=== PATIENT | male | born 1955 | race Caucasian/White ===

== ENCOUNTER 2022-07-24 00:03 | Outpatient (CLI) | payer MEDICARE, BC, SELFPAY | END 2022-07-24 00:04 | disposition home or self-care (01) | LOC: AMB 07-29 10:56 | PROVIDERS: Visit Provider Family Medicine | DX: R10.9 Unspecified abdominal pain (principal) | CPT/HCPCS: A0425; A0427 ==

== ENCOUNTER 2024-10-05 06:54 | Outpatient (CLI) | payer MEDICARE, BC, SELFPAY ==
--- NOTE | 2024-10-05 08:19 | P.ANES_ITS ---
Anesthesia Charges Start Date/Time Anesthesia Start Date: 10/05/24 Anesthesia Start Time: 08:01 Stop Date/Time Anesthesia Stop Date: 10/05/24 Anesthesia Stop Time: 08:18 Coding CPT Codes CPT Codes: ANES UPR GI NDSC PX NOS - 00229 ([id number]) P3 - PATIENT W/SEVERE SYS DISEASE, QX - SURGICAL RN SVC W/ MD MED DIRECTION, QK - GEAR LAPPER 2-4 CNCRNT ANES PROC
--- NOTE | 2024-10-05 08:19 | W.ANESCHARGE ---
Anesthesia Charges Start Date/Time Anesthesia Start Date: 10/05/24 Anesthesia Start Time: 08:01 Stop Date/Time Anesthesia Stop Date: 10/05/24 Anesthesia Stop Time: 08:18 Coding CPT Codes CPT Codes: ANES UPR GI NDSC PX NOS - 44081 ([id number]) P3 - PATIENT W/SEVERE SYS DISEASE, QX - WIRELESS SALES CONSULTANT SVC W/ MD MED DIRECTION, QK - FLIGHT COMMUNICATIONS OFFICER 2-4 CNCRNT ANES PROC
--- NOTE | 2024-10-05 09:05 | P.ANES_ITS ---
Anesthesia Charges Start Date/Time Anesthesia Start Date: 10/05/24 Anesthesia Start Time: 08:01 Stop Date/Time Anesthesia Stop Date: 10/05/24 Anesthesia Stop Time: 08:18 Coding CPT Codes CPT Codes: ANES UPR GI NDSC PX NOS - 44654 ([id number]) QK - SHIPPING RECEIVING CLERK 2-4 CNCRNT ANES PROC, QX - COFFEE SAMPLER SVC W/ MD MED DIRECTION, P3 - PATIENT W/SEVERE SYS DISEASE
--- NOTE | 2024-10-05 09:05 | W.ANESCHARGE ---
Anesthesia Charges Start Date/Time Anesthesia Start Date: 10/05/24 Anesthesia Start Time: 08:01 Stop Date/Time Anesthesia Stop Date: 10/05/24 Anesthesia Stop Time: 08:18 Coding CPT Codes CPT Codes: ANES UPR GI NDSC PX NOS - 13216 ([id number]) QK - DIGITAL PHOTOGRAPHIC PRINTER 2-4 CNCRNT ANES PROC, QX - VERIFIER OPERATOR SVC W/ MD MED DIRECTION, P3 - PATIENT W/SEVERE SYS DISEASE
== END 2024-10-05 06:55 | disposition home or self-care (01) ==
LOC: OP CLINIC 06:55
PROVIDERS: Visit Provider Internal Medicine
DX: Z13.810 Encounter for screening for upper gastrointestinal disorder (principal); K22.70 Barrett's esophagus without dysplasia; K21.9 Gastro-esophageal reflux disease without esophagitis; K31.7 Polyp of stomach and duodenum
CPT/HCPCS: 00731; 43239; 88305; J2704; J3010

== ENCOUNTER 2025-01-26 17:24 | Emergency (ER) | payer MEDICARE, BC, SELFPAY ==
--- OUTSIDE RECORDS SUMMARY | 2024-12-23 12:33 | XMS_ITS | Encounter Summary ---
Author Organization [facility] Address [address] [place] [address] Care Team Providers Care Grocery Associate Name Role Phone Elsewhere, Pcp Primary Care Provider Unavailabl e Reason for Visit * Outpatient (Routine) - Closed Specialty Diagnoses / Procedures Referred By Contac t Referred To Contact Diagnoses Aftercare Total Knee Arthroplasty Procedures DX Knee Bilateral 4+ Views DX Knee Left 4+ Views Roland Loredo P.A.-C., P.A., M.S. [address] [place] [phone] Phone: tel: fax: [facility] Region Referral ID Status Reason Start Date Expiration Date Visits Re quested Visits Authorized [id number] Closed 12/23/2024 03/25/2026 1 1 Encounter Details Date Type Department Care Team (Latest Contact Info) Description 12/23/2024 1:33 PM CDT - 12/23/2024 2:30 PM CDT Hospital Encounter Department of Radiology, [facility] [place], in [place], [place] [address] [place] [phone] Roland Loredo P.A.-C., P.A., M.S. [address] [place] [phone] Aftercare Total Knee Arthroplasty Discharge Disposition: Home or Self Care Social History Tobacco Use Types Packs/Day Years Used Date Smoking Tobacco: Never Smokeless Tobacco: Never Alcohol Use Standard Drinks/Week Comments Not Currently 0 (1 standard drink = 0.6 oz pur e alcohol) quit 1993 [facility] Utilities Answer Date Recorded In the past 12 months has th e [employer], gas, oil, or water company threatened to shut off services in your home? No 03/12/2023 Humiliation, Afraid, Rape, and Kick questionnair e Answer Date Recorded Within the last year, have y ou been afraid of your partner or ex-partner? No 03/12/2023 Within the last year, have y ou been humiliated or emotionally abused in other ways by your partner or ex-partner? No Within the last year, have y ou been kicked, hit, slapped, or otherwise physically hurt by your partner or ex-partner? No 03/12/2023 Within the last year, have y ou been raped or forced to have any kind of sexual activity by your partner or ex-partner? No 03/12/2023 Hunger Vital Sign Answer Date Recorded Within the past 12 months, y ou worried that your food would run out before you got the money to buy more. Never true 03/12/19 24 Within the past 12 months, t he food you bought just didn't last and you didn't have money to get more. Never true 03/12/2023 PRAPARE - Transportation Answer Date Re corded In the past 12 months, has l ack of transportation kept you from medical appointments or from getting medications? No 03/03 In the past 12 months, has l ack of transportation kept you from meetings, work, or from getting things needed for daily living? No 03/12/2023 Housing Stability Answer Date Recorded What is your living situation today? 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 160 tablet 2 11/01/2022 albuterol sulfate 90 mcg/actuation aerosol powdr breath activated Inhale 2 puffs every 4 (four) hours as needed for shortness of breath. 06/06/2015 ALPRAZolam XR (XANAX XR) 3 mg 24 hr tablet Take 6 mg by mouth daily as needed. budesonide-formoter oL (SYMBICORT) 160-4.5 mcg/actuation inhaler Inhale 2 puffs 2 (two) times a day as needed. Takes when has a cold. Rinse mouth with water after use to reduce aftertaste and incidence of candidiasis. Do not swallow. bumetanide (BUMEX) 1 mg tablet Take 1 mg by mouth daily as needed (Uses for fluid in his knee). 07/31/2023 carboxymethylcellul ose (REFRESH PLUS) 0.5 % ophthalmic solution Administer 1 drop into both eyes 3 (three) times a day as needed for dry eyes. 1 each 2 11/01/2022 celecoxib (CeleBREX) 200 mg capsule Take 1 capsule (200 mg total) by mouth 2 (two) times a day. 180 capsule 3 11/01/2022 Constulose 10 gram/15 mL solution Take 10 g by mouth daily. 02/22/2020 cyclobenzaprine (FLEXERIL) 10 mg tablet Take 10 mg by mouth at bedtime as needed. 11/21/2022 diazePAM (for_VALIUM) 5 mg tablet Take 10 mg by mouth at bedtime. famotidine (Pepcid) 20 mg tablet Take 20 mg by mouth 2 (two) times a day. FLUTICASONE PROPIONATE NASAL Administer 2 sprays into nostril(s) daily as needed. gabapentin (NEURONTIN) 300 mg capsule Take 300 mg by mouth 2 (two) times a day. 09/30/2022 gemfibrozil (for_LOPID) 600 mg tablet Take 1 tablet by mouth at bedtime. 02/21/2012 hydrOXYzine (for_VISTARIL) 25 mg capsule Take 25 mg by mouth at bedtime. 03/29/2016 MAGNESIUM ORAL Take 300 mg by mouth every morning before breakfast. neomycin-polymyxin- dexamethasone (Maxitrol) 3.5mg/mL-10,000 unit/mL-0.1 % ophthalmic suspension 04/22/2024 neomycin-polymyxin- HC (Cortisporin) 3.5-10,000-1 mg/mL-unit/mL-% otic solution 03/04/2024 ondansetron ODT (Zofran-ODT) 4 mg disintegrating tablet Dissolve 1 tablet (4 mg total) in the mouth every 8 (eight) hours as needed for nausea or vomiting. 20 tablet 10/26/2024 oxyBUTYnin (Ditropan) 5 mg tablet Take 1 tablet (5 mg total) by mouth 3 (three) times a day as needed (bladder spasms). Take as needed for bladder spasms or stent irritation 20 tablet 1 10/28/2024 oxyCODONE (Roxicodone) 10 mg IR tablet Take 1 tablet by mouth daily. 07/10/2024 pantoprazole (for_PROTONIX) 40 mg EC tablet Take 1 tablet by mouth daily. 07/24/2016 polyethylene glycol (MIRALAX) 17 gram powder packet Take 17 g by mouth daily as needed. Dissolve each 17 g dose in 240 mLs (8 ounces) of beverage. propranoloL (INDERAL) 40 mg tablet Take 40 mg by mouth 2 (two) times a day. 09/20/2022 ramipriL (ALTACE) 2.5 mg capsule Take 2.5 mg by mouth daily. 08/25/2020 rosuvastatin (CRESTOR) 20 mg tablet Take 20 mg by mouth at bedtime. 07/13/2022 semaglutide (Ozempic) 1 mg/dose (4 mg/3 mL) injection Inject 1 mg under the skin every 7 (seven) days. senna 8.6 mg tablet TAKE 2 TABLETS BY MOUTH DAILY 100 tablet 11 10/11/2024 sucralfate (CARAFATE) 100 mg/mL suspension Take 1 g by mouth as needed (for his esophagus). 05/10/2023 temazepam (RESTORIL) 30 mg capsule Take 30 mg by mouth at bedtime. 1 01/06/2019 traMADoL (Ultram) 50 mg tablet 11/09/2024 traMADoL-acetaminop hen (ULTRACET) 37.5-325 mg per tablet Take by mouth daily as needed. Takes when working 01/29/2023 documented as of this encounter Plan of Treatment Scheduled Procedures Name Priority Associated Diagnoses Date/Ti me URETEROSCOPY STONE EXTRACTION Stone Ureteral documented as of this encounter Procedures Procedure Name Priority Date/Time Associated Diagnosis Comments DX KNEE BILATERAL 4+ VIEWS RAD - Routine (most inpatients and all outpatients) 12/23/2024 1:54 PM CDT Aftercare Total Knee Arthroplasty documented in this encounter Results * DX Knee Bilateral 4+ Views (12/23/2024 1:54 PM CDT) Anatomical Region Laterality Modality Lower Extremity, Knee, Muscu loskeletal RST LOS, Musculoskeletal ARZ LOS, Muskuloskeletal FLA LOS Bilateral Digit al Radiography Impressions 12/23/2024 2:43 PM CDT 1. Small right knee joint effusion with moderate degenerative osteoarthritis primarily involving the patellofemoral joint. 2. Stable left total knee arthroplasty. Narrative 12/23/2024 2:43 PM CDT EXAM: DX KNEE BILATERAL 4+ VIEWS COMPARISON: 09/11/2023. FINDINGS: There is a small knee joint effusion on the right. No fracture or destructive. There is moderate degenerative osteoarthritis primarily involving the patellofemoral joint. On the left soft tissues are unremarkable. Total knee arthroplasty is stable and unchanged without loosening or dislocation. There is no significant interval change compared with 06/12/2023. Procedure Note Stan Mcdaniel Jr., M.D. - 12/23/2024 EXAM: DX KNEE BILATERAL 4+ VIEWS COMPARISON: 09/11/2023. FINDINGS: There is a small knee joint effusion on the right. No fractureor destructive. There is moderate degenerative osteoarthritis primarilyinvolving the patellofemoral joint. On the left soft tissues areunremarkable. Total knee arthroplasty is stable and unchanged withoutloosening or dislocation. There is no significant interval change comparedwith 06/12/2023. IMPRESSION: 1. Small right knee joint effusion with moderate degenerativeosteoarthritis primarily involving the patellofemoral joint. 2. Stable left total knee arthroplasty. Roland Loredo P.A.-C., P.A., M.S. IMG DIAGNOSTIC IMAGING PROCEDURES Final Result documented in this encounter Visit Diagnoses Diagnosis Aftercare Total Knee Arthroplasty documented in this encounter Care Teams Grocery Associate Relationship Specialty Start Date End Date Elsewhere, Pcp PCP - General Internal Medicine 07/15/22 documented as of this encounter
--- OUTSIDE RECORDS SUMMARY | 2024-12-23 13:30 | XMS_ITS | Encounter Summary ---
Author Organization [facility] Address [address] [place] [id number] Care Team Providers Care Visual Artist Name Role Phone Elsewhere, Pcp Primary Care Provider Unavailabl e Reason for Visit * Reason Comments Pain Pain * Appointment Request (Routine) - Closed Specialty Diagnoses / Procedures Referred By Gris kelly Referred To Contact Orthopedic Surgery Referral ID Status Reason Start Date Expiration Date Visits Re quested Visits Authorized [id number] Closed 12/23/2024 03/25/2026 1 1 Encounter Details Date Type Department Care Team (Late st Contact Info) Description 12/23/2024 2:30 PM CDT Office Visit Department of Orthopedic Surgery in [address] [phone] Roland Loredo P.A.-Shana., P.A., M.S. [address] [place] [phone] Aftercare Total Knee Arthroplasty (Primary Dx); Primary Osteoarthritis Knee Right Discharge Disposition: Home or Self Care Social History Tobacco Use Types Packs/Day Years Used Date Smoking Tobacco: Never Smokeless Tobacco: Never Alcohol Use Standard Drinks/Week Comments Not Currently 0 (1 standard drink = 0.6 oz pur e alcohol) quit 1993 [facility] Utilities Answer Date Recorded In the past 12 months has e electric, gas, oil, or water company threatened to [...] your living situation today? I have a [facility] place to live 03/12/2023 Sex and Gender Information Value Date Recorded Sex Assigned at Male 07/18/2017 9:35 AM CDT Legal Sex Male 4:00 PM [employer]UMIN[employer] Gender Identity Male 07/18/2017 9:35 AM CDT Sexual Orientation Straight 07/18/2017 9: 35 AM CDT documented as of this encounter Last Filed Vital Signs Vital Sign Reading Time Taken Comments Blood Pressure - - Pulse 70 12/23/2024 2:03 PM CDT Temperature 36.7 C (98.1 F) 12/23/2024 2:03 PM CDT Respiratory Rate - - Oxygen Saturation 95% 12/23/2024 2:03 PM CDT Inhaled Oxygen Concentration - - Weight - - Height - - Body Mass Index - - documented in this encounter Progress Notes * Roland Loredo P.A.-C., P.A., M.S. - 12/23/2024 2:30 PM CDT [facility] Orthopedic Surgery Name: Adal Alvarez : 1955 Sex: male Date: 12/24/2024 CHIEF COMPLAINT: Left knee pain HISTORY OR PRESENT ILLNESS: Adal is a 69-year-old male who presents to the clinic with left knee pain. He also stated early on in his visit that he has concerns regarding his right knee and his righthip. Specifically for his left knee, he states he has been having discomfort over the last year bella half. Of note he does have a history of a left total knee arthroplasty done by Dr. Farrar on 10/30/2022. 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 He does do a lot of kneeling on his left knee and finds this to be aggravating. He also has found his left knee buckling at times. He feels he has a bump on the anterior aspect of his knee. In regards to his right knee he has discomfort while doing the same things, specifically with kneeling. He did briefly mentioned concerns of having a bump on his right hip as well today. Adal states he did have to have a kidney stone removed surgically a few months ago. He is still dealing with issues with this. He states today he does have 2 collect urine sample which he believes they also we will be checking for any possible bacteria. PAST MEDICAL/SURGICAL/FAMILY/SOCIAL HISTORY: The medical history was reviewed today from the electronic medical record. Please see the electronic medical record for complete details of the PAST MEDICAL HISTORY, FAMILY HISTORY, and SOCIAL HISTORY. Past Surgical History: Procedure Laterality Date ARTHROPLASTY REPLACEMENT TOTAL KNEE Left 10/30/2022 Procedure: ARTHROPLASTY REPLACEMENT TOTAL KNEE; Surgeon: Hank Farrar D.O.; Location: [facility] COLON SURGERY CYSTOSCOPY INSERTION STENT URETER Right 10/28/2024 Procedure: CYSTOSCOPY INSERTION STENT URETER; Surgeon: Mary Estes M.D.; Location: [facility] OR CYSTOSCOPY WITH TRANSURETHRAL PROSTATECTOMY N/A 03/12/2023 Procedure: CYSTOSCOPY WITH TRANSURETHRAL PROSTATECTOMY; Surgeon: Mary Estes M.D.; Location: [facility] OR CYSTOURETHROSCOPY WITH PLACEMENT URETERAL STENT Right 07/15/2022 Procedure: CYSTOURETHROSCOPY WITH PLACEMENT URETERAL STENT; Surgeon: Jason Chawla M.D.; Location: [facility] OR ESOPHAGOGASTRODUODENOSCOPY N/A 05/31/2021 Procedure: ESOPHAGOGASTRODUODENOSCOPY; Surgeon: Isma Osorio M.D.; Location: [facility] OR KNEE ARTHROSCOPY Left OTHER esophageal hernia repair in 9th grade RETROGRADE PYELOGRAM Right 07/15/2022 Procedure: RETROGRADE PYELOGRAM; Surgeon: Jason Chawla M.D.; Location: [facility] OR RETROGRADE PYELOGRAM Right 10/28/2024 Procedure: RETROGRADE PYELOGRAM; Surgeon: Mary Estes M.D.; Location: [facility] OR SACRAL NERVE STIMULATION - STAGE 1 N/A 12/10/2023 Procedure: SACRAL NERVE STIMULATION - STAGE 1; Surgeon: Mary Estes M.D.; Location: [facility] OR SACRAL NERVE STIMULATION - STAGE 2 N/A 12/31/2023 Procedure: SACRAL NERVE STIMULATION - STAGE 2; Surgeon: Mary Estes M.D.; Location: [facility] OR URETEROSCOPY WITH LASER LITHOTRIPSY Right 10/28/2024 Procedure: URETEROSCOPY WITH LASER LITHOTRIPSY; Surgeon: Mary Estes M.D.; Location: [facility] OR MEDICATIONS: Current Outpatient Medications on File Prior to Visit Medication Sig Dispense Refill acetaminophen (TYLENOL) 500 mg tablet Take 2 tablets (1,000 mg total) by mouth every 6 (six) hours.160 tablet 2 albuterol sulfate 90 mcg/actuation aerosol powdr breath activated Inhale 2 puffs every 4 (four) hours as needed for shortness of breath. ALPRAZolam XR (XANAX XR) 3 mg 24 hr tablet Take 6 mg by mouth daily as needed. budesonide-formoteroL (SYMBICORT) 160-4.5 mcg/actuation inhaler Inhale 2 puffs 2 (two) times a day as needed. Takes when has a cold. Rinse mouth with water after use to reduce aftertaste and incidence of candidiasis. Do not swallow. bumetanide (BUMEX) 1 mg tablet Take 1 mg by mouth daily as needed (Uses for fluid in his knee). carboxymethylcellulose (REFRESH PLUS) 0.5 % ophthalmic solution Administer 1 drop into both eyes 3 (three) times a day as needed for dry eyes. 1 each 2 celecoxib (CeleBREX) 200 mg capsule Take 1 capsule (200 mg total) by mouth 2 (two) times a day. 180capsule 3 Constulose 10 gram/15 mL solution Take 10 g by mouth daily. cyclobenzaprine (FLEXERIL) 10 mg tablet Take 10 mg by mouth at bedtime as needed. diazePAM (for_VALIUM) 5 mg tablet Take 10 mg by mouth at bedtime. famotidine (Pepcid) 20 mg tablet Take 20 mg by mouth 2 (two) times a day. FLUTICASONE PROPIONATE NASAL Administer 2 sprays into nostril(s) daily as needed. gabapentin (NEURONTIN) 300 mg capsule Take 300 mg by mouth 2 (two) times a day. gemfibrozil (for_LOPID) 600 mg tablet Take 1 tablet by mouth at bedtime. hydrOXYzine (for_VISTARIL) 25 mg capsule Take 25 mg by mouth at bedtime. MAGNESIUM ORAL Take 300 mg by mouth every morning before breakfast. pmtpoljx-llzaygilh-lawyzixvlwuht (Maxitrol) 3.5mg/mL-10,000 unit/mL-0.1 % ophthalmic suspension hdknfbly-cpnwoioun-YU (Cortisporin) 3.5-10,000-1 mg/mL-unit/mL-% otic solution ondansetron ODT (Zofran-ODT) 4 mg disintegrating tablet Dissolve 1 tablet (4 mg total) in the mouthevery 8 (eight) hours as needed for nausea or vomiting. 20 tablet 0 oxyBUTYnin (Ditropan) 5 mg tablet Take 1 tablet (5 mg total) by mouth 3 (three) times a day as needed (bladder spasms). Take as needed for bladder spasms or stent irritation 20 tablet 1 pantoprazole (for_PROTONIX) 40 mg EC tablet Take 1 tablet by mouth daily. polyethylene glycol (MIRALAX) 17 gram powder packet Take 17 g by mouth daily as needed. Dissolve each 17 g dose in 240 mLs (8 ounces) of beverage. propranoloL (INDERAL) 40 mg tablet Take 40 mg by mouth 2 (two) times a day. ramipriL (ALTACE) 2.5 mg capsule Take 2.5 mg by mouth daily. rosuvastatin (CRESTOR) 20 mg tablet Take 20 mg by mouth at bedtime. semaglutide (Ozempic) 1 mg/dose (4 mg/3 mL) injection Inject 1 mg under the skin every 7 (seven) days. senna 8.6 mg tablet TAKE 2 TABLETS BY MOUTH DAILY 100 tablet 11 sucralfate (CARAFATE) 100 mg/mL suspension Take 1 g by mouth as needed (for his esophagus). temazepam (RESTORIL) 30 mg capsule Take 30 mg by mouth at bedtime. 1 traMADoL (Ultram) 50 mg tablet traMADoL-acetaminophen (ULTRACET) 37.5-325 mg per tablet Take by mouth daily as needed. Takes when working oxyCODONE (Roxicodone) 10 mg IR tablet Take 1 tablet by mouth daily. (Patient not taking: Reported on 12/23/2024) No current facility-administered medications on file prior to visit. ALLERGIES: Allergies Allergen Reactions Fish Derived Anaphylaxis Atorvastatin Myalgia Levaquin [Levofloxacin] Other (see comments) Intolerance to Levaquin. Facial flushing but could have been from being in the sun since he did notrealize he should not be in the sun. Morphine Nausea And Vomiting Penicillins Hives (Reselect Reaction) Shellfish Containing Products Anaphylaxis Per patient report PHYSICAL EXAM: General: Alert and orientated to person, place, and time. No signs of distress or discomfort. Speech is coherent and appropriate to conversation. Breathing is non-labored. Vitals: 12/23/24 1403 Pulse: 70 Temp: 36.7 ??C SpO2: 95% Gait: Nonantalgic Skin: Intact. Sensation: Intact sensation along peroneal, deep peroneal, and tibial nerve distribution Right Hip Exam: I was unable to palpate any type of mass or lump that he has been referencing. It potentially may be slightly more swollen compared to the left side. He is nontender to palpation about the hip. He is able to go from a seated to standing position easily today with no pain. No pain along the ITB band. Right Knee Exam: No joint effusion with balloting. Range of motion 0??-115??. No tenderness to palpation along the anterior, medial, and lateral joint lines. Likely suspected prepatellar bursitis upon palpation. Left Knee Exam: No joint effusion with balloting. No erythema or warmth noted. Range of motion 0??-115??. No tenderness to palpation along the anterior, medial, and lateral joint lines. Significant callus to the anterior aspect of his knee, likely from the kneeling he has been doing. No pain or laxity with valgus and varus stress at 0?? and 30??. Negative Anterior drawer. IMAGING: @DX Knee Bilateral 4+ Views Result Date: 12/23/2024 Impression: 1. Small right knee joint effusion with moderate degenerative osteoarthritis primarily involving the patellofemoral joint. 2. Stable left total knee arthroplasty. ASSESSMENT: Status post left total knee arthroplasty 2022 Right knee primary osteoarthritis Right hip lump PLAN: I independently reviewed patient's x-rays he had completed today. In regards to his left total knee arthroplasty, the hardware is intact with no concerning findings. The right knee does show significant patellofemoral arthritic changes. We discussed the anatomy and pathology of these findings today. After obtaining patient's history and conducting his physical exam I have no concerns today regarding any infection to his left total knee. I do feel most of his symptoms are being aggravated by the amount of time he spends kneeling on his knee. He did have significant callus to his skin on the anterior aspect of the left knee. I discussed with him that some patients can tolerate kneeling okay after surgery in some can not. I do feel this is the primary cause of his discomfort at this time. His knee otherwise feels stable on his exam. I recommended with him that he avoids kneeling and gets help with certain activities that require this. I did also offer him physical therapy as he has been describing some buckling sensations which I suspect is likely a mismatch between his quadriceps and hamstring strength. He will plan on letting me know if physical therapy is something he is interested in. In regards to his right knee we reviewed the arthritic changes noted. We reviewed conservative measures with bmjl-hpr-hlylhxa medications and cortisone injections. Due to him not being quite sure the status of his kidneys and stating he needs to have a urine culture done today, I do not recommend we proceed with a cortisone injection in the event he has a urinary tract infection. He isokay with this and will let me know in the future if he has ever interested in proceeding with a cortisone injection to help for pain management. In regards to his right hip I do not appreciate any of the concerns he had voice today specifically with not being able to palpate a mass or lump to the right hip. His physical exam was very benign for this. It potentially had some additional swelling compared to the left side but no signs of erythema or warmth. He also had no pain to this area. I discussed with him that this is something we can continue to monitor if he were to notice any changes or if a true lump or mass became palpable. Adal we will keep me updated on any new concerns or questions he has. He otherwise will plan on following up on an as-needed basis. Adal Alvarez verbalizes understanding and agrees with the plan. If further questions or concerns arise to let us know. Loreto Loredo PA-C Orthopedic Surgery & Sports Medicine [facility] documented in this encounter Plan of Treatment Scheduled Procedures Name Priority Associated Diagnoses Date/Ti me URETEROSCOPY STONE EXTRACTION Stone Ureteral documented as of this encounter Visit Diagnoses Diagnosis Aftercare Total Knee Arthroplasty- Primary Primary Osteoarthritis Knee Right documented in this encounter Care Teams Visual Artist Relationship Specialty Start Date End Date Elsewhere, Pcp PCP - General Internal Medicine 07/15/22 documented as of this encounter
--- OUTSIDE RECORDS SUMMARY | 2024-12-23 13:31 | XMS_ITS | Encounter Summary ---
Author Organization [facility] Address [address] [place] [address] Care Team Providers Care Chicken Buyer Name Role Phone Elsewhere, Pcp Primary Care Provider Unavailabl e Encounter Details Date Type Department Care Team (Latest Contact Info) Description 12/23/2024 2:31 PM CDT - 12/23/2024 11:59 PM CDT Hospital Encounter Department of Laboratory Medicine in [place], [place] [address] [place] [phone] Mary Estes M.D. [address] [place] [phone] Pyuria Discharge Disposition: Home or Self Care Social History Tobacco Use Types Packs/Day Years Used Date Smoking Tobacco: Never Smokeless Tobacco: Never Alcohol Use Standard Drinks/Week Comments Not Currently 0 (1 standard drink = 0.6 oz pur e alcohol) quit 1993 [facility] Utilities Answer Date Recorded In the [...] your living situation today? 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 Gender Identity Male 07/18/2017 9:35 AM CDT [...] Scheduled Procedures Name Priority Associated Diagnoses Date/Ti mo URETEROSCOPY STONE EXTRACTION Stone Ureteral documented as of this encounter Procedures Procedure Name Priority Date/Time Associated Diagnosis Comments BACTERIAL CULTURE, AEROBIC + SUSC, URINE Routine 12/23/2024 2:38 PM CDT Pyuria URINALYSIS WITH MICROSCOPIC Routine 12/23/2024 2:38 PM CDT Pyuria documented in this encounter Results * (ABNORMAL) Urinalysis, with Microscopic: Urine, Midstream (12/23/2024 2:38 PM CDT) Source Urine, Urine, Midstream 12/23/2024 2:43 PM CDT [facility] Clarity Clear Clear 12/23/2024 2:47 PM CDT [facility] Color Yellow 12/23/2024 2:47 PM CDT [facility] Comment: ----REFERENCE VALUE---- Colorless Yellow Kimberly Blood Trace(A) Negative 12/23/2024 2:47 PM CDT [facility] Nitrite Negative Negative 12/23/2024 2:47 PM CDT [facility] Leukocyte Esterase Negative Negative 12/23/2024 2:47 PM CDT [facility] Protein Negative mg/dL 12/23/2024 2:47 PM CDT [facility] Comment: ----REFERENCE VALUE---- Negative Trace Glucose Negative Negative mg/dL 12/23/2024 2:47 PM CDT [facility] Ketones, QI(U) Negative Negative mg/dL 12/23/2024 2:47 PM CDT [facility] Bilirubin Negative Negative 12/23/2024 2:47 PM CDT [facility] pH 5.5 5.0 - 8.0 12/23/2024 2:47 PM CDT [facility] Specific [place] <=1.005 1.001 - 1.035 12/23/2024 2:47 PM CDT [facility] Urobilinogen 0.2 0.2 - 1.0 mg/dL 12/23/2024 2:47 PM CDT [facility] White Blood Cells None Seen /hpf 12/23/2024 2:53 PM CDT [facility] Comment: ----REFERENCE VALUE---- Males: 0-3 Females: 0-10 Unknown: 0-10 Red Blood Cells None Seen 0 - 2 /hpf 2:53 PM CDT [facility] Urine (Urine, Midstream) 12/23/2024 2:38 PM CDT 12/23/2024 2:43 PM CDT us Mary Estes M.D. LAB URINE ORDERABLES Fi nal Result [facility] [address] [place] [address], [place] [facility] [address] [place] [address] * Bacterial Culture, Aerobic + Susceptibility, Urine (12/23/2024 2:38 PM CDT) Urine Culture Urogenital microbiota, susceptibilities not performed per laboratory criteria. 12/24/2024 1:19 PM CDT [facility] Urine (Urine, Midstream) 12/23/2024 2:38 PM CDT 12/23/2024 4:37 PM CDT Comment:Specimen Source Site : Urine us Mary Estes M.D. LAB MICROBIOLOGY - GENE RAL ORDERABLES Final Result [facility] [address] [place] [address], [facility] [place] [address] [place] [address] documented in this encounter Visit Diagnoses Diagnosis Pyuria documented in this encounter Care Teams Chicken Buyer Relationship Specialty Start Date End Date Elsewhere, Pcp PCP - General Internal Medicine 07/15/22 documented as of this encounter
[2025-01-26 17:29] VITALS: BP 187/100; PULSE 76; RESP 18; TEMP 37.1; O2SAT 95
--- NOTE | 2025-01-26 17:40 | ED.FALL ---
HPI - Fall General Date Seen: 01/26/25 Chief Complaint: Fall/Minor Trauma Stated Complaint: fell, hit back and shoulders Time Seen by Provider: 01/26/25 17:40 Source: patient and RN notes reviewed Mode of arrival: ambulatory Limitations: no limitations History of Present Illness HPI Narrative: Adal is a very pleasant 69-year-old gentleman who presents here with his daughter is very loving and supportive for evaluation regarding right shoulder right scapular and low back pain after a fall earlier today. Adal had come home and was going to shovel his driveway and ended up slipping landing on his back. He does think he hit his head and he has some soreness on the right side of his neck. Denies any new numbness or tingling however. Unfortunately he has pain in his right shoulder and feels when he lifted over his head he can hear a cracking type sound. He also fell on his back and he has an implanted stimulator in his right low back that is causing him discomfort. This is a stimulator for for bowel and bladder control. He did not lose consciousness. He denies chest pain or shortness of breath. Is not yet taken any medications. Unfortunately he has a profound fear of MRI and CT. We would not be doing an MRI given it is after hours any does have the implanted stimulator. He does think he would be able to do a CT if we gave him some oral medication. He has Valium at home and he says it does not work. Related Data Home Medications ?Medication ?Instructions ?Recorded ?Confirmed alprazolam 3 mg tablet,extended 6 mg PO DAILY 01/26/25 01/26/25 release 24 hr budesonide-formoterol HFA 160 1 inh inhalation BID 01/26/25 01/26/25 mcg-4.5 mcg/actuation aerosol inhaler (Symbicort) celecoxib 200 mg capsule mg PO 01/26/25 cyclobenzaprine .ROUTE 01/26/25 diazepam 5 mg tablet 20 mg PO QPM PRN 01/26/25 01/26/25 famotidine PO 01/26/25 gabapentin 300 mg capsule 300 mg PO BID 01/26/25 01/26/25 gemfibrozil 600 mg tablet 600 mg PO BID 01/26/25 01/26/25 hydroxyzine pamoate 25 mg capsule 25 mg PO QPM 01/26/25 01/26/25 ketorolac .ROUTE 01/26/25 oxycodone 20 mg tablet 20 mg PO DAILY 01/26/25 01/26/25 pantoprazole 40 mg tablet,delayed 40 mg PO BID 01/26/25 01/26/25 release polyethylene glycol 3350 17 17 g PO DAILY 01/26/25 01/26/25 gram/dose oral powder (Miralax) propranolol 40 mg tablet 40 mg PO BID 01/26/25 01/26/25 ramipril 2.5 mg capsule 2.5 mg PO DAILY 01/26/25 01/26/25 rosuvastatin 20 mg tablet 20 mg PO QPM 01/26/25 01/26/25 sennosides 8.6 mg capsule (senna) 8.6 mg PO DAILY 01/26/25 01/26/25 temazepam 30 mg capsule 30 mg PO QPM 01/26/25 01/26/25 tramadol 37.5 mg-acetaminophen 325 tab PO DAILY 01/26/25 mg tablet Allergies Allergy/AdvReac Type Severity Reaction Status Date / Time atorvastatin (From Lipitor) Allergy Verified 01/26/25 17:38 Fish Containing Products Allergy Verified 01/26/25 17:38 Penicillins Allergy Verified 01/26/25 17:38 Review of Systems Status of ROS: Reports: 10 or more systems reviewed and unremarkable except as noted in History and below Const: Denies: fever Eyes: Denies: change in vision or blurry vision ENMT: Reports: neck pain (Right-sided); Denies: difficulty swallowing or nasal congestion Cardio: Denies: chest pain Resp: Denies: cough GI: Denies: abdominal pain, nausea, vomiting or difficulty swallowing : Reports: other (No change in urinary symptoms.) Musculo: Reports: neck pain (Right-sided) Neuro: Denies: headache, numbness in extremities or weakness in extremities Exam Narrative: Exam Narrative: Alert and oriented. Very anxious appropriately consoled. Adal's daughter is present and is very good with her dad and has insight into his medical issues. Adal's head is atraumatic normocephalic. EOM is full. Face symmetrical. He does have some discomfort on the right paraspinous musculature. No significant midline cervical tenderness. Heart with a regular rate and rhythm and lungs are clear. He has pain with palpation over the right scapula and with movement of the right arm especially in abduction. I do not hear the click he is talking but do note that he has discomfort with movement of the right shoulder. No sulcus sign on the right. No unusual ecchymosis. The scapula is not winging. Palpation down the thoracic spine does not yield any tenderness. He does have pain in the lumbar spine and over the right SI joint. Well-healed scar noted near the stimulator. He does show me area of fullness on the right buttock. Notes it was not there previously. There is no evidence of ecchymosis hematoma in this area on the superior lateral buttock. This area is somewhat tender to the touch Const: Vital Signs, click to edit/add: Vital Signs - 24 hr 01/26/25 17:29 Temperature 98.8 F Pulse Rate [Right Pulse Oximeter] 76 Respiratory Rate 18 Blood Pressure [Le ft Upper Arm] 187/100 H Pulse Oximetry 95 Oxygen Delivery Me thod Room Air Documenting provider has reviewed patient's vital signs: yes Course Course ED Course: Differential diagnosis includes right shoulder fracture, rotator cuff injury, scapular fracture, cervical spine injury, head bleed, soft tissue injury, lumbar spine injury. At this time patient is extremely anxious but he is redirectable. Recommend given his age and the fact that he is somewhat of a poor historian that we should CT to ensure there is no significant injury. I would recommend CT of the head cervical spine chest abdomen and pelvis and plain x-rays of the right shoulder. He is in agreement with this but is very worried about having to go through the CT. I did explain that this is not the MRI. He has Valium at home but states that does not really help. I will give him 1 mg of Ativan here in the ED. Reevaluation(s) Reevaluation #1: Patient able to tolerate CT with Ativan. He has anxiety seems much improved. Fortunately no evidence of fractures. Vital Signs Vital signs: Initial Vital Signs Temperature 98.8 F 01/26/25 17:29 Temperature Source Temporal Artery Scan 01/26/25 17:29 Pulse Rate 76 01/26/25 17:29 Pulse Rhythm Regular 01/26/25 17:29 Pulse Strength 3+ Normal 01/26/25 17:29 Respiratory Rate 18 01/26/25 17:29 Blood Pressure 187/100 H 01/26/25 17:29 Blood Pressure Mean 129 H 01/26/25 17:29 Blood Pressure Position Sitting 01/26/25 17:29 Pulse Oximetry 95 01/26/25 17:29 Oxygen Delivery Method Room Air 01/26/25 17:29 Vital Signs Temperature 98.8 F 01/26/25 17:29 Pulse Rate 76 01/26/25 17:29 Respiratory Rate 18 01/26/25 17:29 Blood Pressure 187/100 H 01/26/25 17:29 Pulse Oximetry 95 01/26/25 17:29 Oxygen Delivery Method Room Air 01/26/25 17:29 Temperature 98.8 F 01/26/25 17:29 Pulse Rate 76 01/26/25 17:29 Respiratory Rate 18 01/26/25 17:29 Blood Pressure 187/100 H 01/26/25 17:29 Pulse Oximetry 95 01/26/25 17:29 Oxygen Delivery Method Room Air 01/26/25 17:29 Medications Administered Medications: Discontinued Medications Generic Name Dose Route Start Last Admin Trade Name Millie RODRIGUES Reason Stop Dose Admin Lorazepam 1 mg 01/26/25 17:57 01/26/25 18:05 Lorazepam 1 Mg Tablet PO 01/26/25 17:58 1 mg ONCE ONE Administration Morphine Sulfate 8 mg 01/26/25 19:47 01/26/25 19:58 Morphine 4 Mg/Ml Inj IM 01/26/25 19:48 8 mg ONCE ONE Administration MDM - Fall MDM Narrative Medical decision making narrative: 1. Fall-this did not appear to be associated with any prodromal symptoms and was simply a fall on the news no-ice today. No evidence of significant head injury or cervical spine injury. He is moving his neck without difficulty and there is no guarding. 2. Right shoulder injury-no evidence of fracture but symptoms discomfort strongly suggest soft tissue and may be even rotator cuff injury. Recommend icing to this area. Patient declines a sling. He may need physical therapy in order to strengthen once again. He will need to follow-up with his primary MD for further evaluation. 3. Low back pain-soft tissue injury as there is no evidence of fracture noted on CT. Patient does ask me if I can see his stimulator sparking and I do states that I cannot. I do not see that the stimulator is broken nor does he have any underlying injury. He was concerned about some excess soft tissue on the right buttock. No evidence of hematoma in this area. 4. Disposition-patient will be discharged home. He is having significant discomfort and wants some medicine for that. Given his Valium use at home I am hesitant to discharge with oral narcotics. I will however give him 1 dose of morphine 8 mg IM. Patient may then alternate between Tylenol and ibuprofen at home. For further medication will need to go through his primary MD. of course however if he has increasing symptoms, confusion, vomiting, change in his bowel or bladder habits or the onset of new symptoms would have him return and seek medical attention. Medical Records Attestation: I reviewed the patient's medical records. Imaging Data CT scan - head: Attestation: I have reviewed the pertinent imaging results. My impression: No obvious skull fracture or intracranial bleed Radiologist's impression: Findings: Brain: No acute hemorrhage. No acute infarct. No significant mass effect or midline shift. No gross evidence of a mass lesion or cerebral edema. Mild chronic senescent disease. Ventricles: No acute abnormality appreciated. Orbits, sinuses, mastoids: No acute abnormality appreciated. Calvarium and soft tissues: No acute abnormality appreciated. Impression: No acute abnormality appreciated. Cervical spine CT: Attestation: I have reviewed the pertinent imaging results. My impression: I do not see any fracture. Radiologist's impression: Alignment: No acute malalignment appreciated. Bones: No acute fracture. No lytic or blastic lesion. Cervical levels: No acute abnormality appreciated. [id number] spondylosis. Soft tissues: No acute abnormality appreciated. Impression: No acute abnormality appreciated. CT Chest/Ab/Pelvis: Attestation: I have reviewed the pertinent imaging results. My impression: I do not note any acute fractures. Radiologist's impression: Chest: Lungs: No consolidation. No effusion. No pneumothorax. Areas of mild atelectasis and/or scarring are noted. Mediastinum: No acute abnormality appreciated. Calcified coronary arterial and aortic atherosclerosis. Lymph nodes: No gross lymphadenopathy. Soft tissues: No acute abnormality appreciated. Bones: No acute abnormality appreciated. Degenerative changes of the spine. Visualized portions of the right scapula are without acute abnormality. Abdomen and Pelvis: Hepatobiliary: No significant parenchymal abnormality is appreciated. Spleen: Unremarkable. Pancreas: No acute abnormality appreciated. Adrenal glands: No acute abnormality appreciated. Kidneys: No significant parenchymal abnormality appreciated. No visualized calculi. No hydronephrosis. Bowel: No obstruction. No focal perienteric or pericolonic stranding is appreciated. The appendix is visualized and appears unremarkable. Vascular: Poorly evaluated on this noncontrast examination. Calcified atherosclerosis. Lymph nodes: No gross lymphadenopathy. Peritoneum: No free air. No free fluid. : No acute abnormality appreciated. Soft tissues: No acute abnormality appreciated. Bones: No acute fracture. No lytic or blastic lesion. Degenerative changes of the spine and pelvis. Sacral stimulator noted. Impression: Chronic findings as above with no acute abnormality appreciated. Right shoulder x-ray: Attestation: I have reviewed the pertinent imaging results. My impression: No acute fractures noted. Radiologist's impression: Findings/Impression: Moderate osteoarthritis with no acute radiographic abnormality appreciated. Discharge Plan Discharge Clinical Impression: Fall, Injury of shoulder, right, Low back pain Patient Disposition: Home w/ Parent or Adult Condition: Improved Additional Instructions: Alternate Tylenol and ibuprofen every 4 hours as needed for discomfort. Follow-up with your primary MD if you need any further pain management. Return to the ER for onset of new symptoms. I suspect that you may need physical therapy for your right shoulder as I think this is likely rotator cuff injury. No broken bones were noted on your CT test today. Prescriptions: No Action celecoxib 200 mg capsule PO tramadol-acetaminophen 37.5-325 mg tablet PO DAILY propranolol 40 mg tablet 40 mg PO BID temazepam 30 mg capsule 30 mg PO QPM gemfibrozil 600 mg tablet 600 mg PO BID pantoprazole 40 mg tablet,delayed release (DR/EC) 40 mg PO BID ramipril 2.5 mg capsule 2.5 mg PO DAILY gabapentin 300 mg capsule 300 mg PO BID diazepam 5 mg tablet 20 mg PO QPM PRN hydroxyzine pamoate 25 mg capsule 25 mg PO QPM alprazolam 3 mg tablet extended release 24 hr 6 mg PO DAILY rosuvastatin 20 mg tablet 20 mg PO QPM oxycodone 20 mg tablet 20 mg PO DAILY cyclobenzaprine .ROUTE polyethylene glycol 3350 [Miralax] 17 gram/dose powder 17 g PO DAILY senna 8.6 mg capsule 8.6 mg PO DAILY budesonide-formoterol [Symbicort] 160-4.5 mcg/actuation HFA aerosol inhaler 1 inh inhalation BID famotidine PO ketorolac .ROUTE Follow Up/Referrals: Provider,Not a Local [Non-Staff, Family Practice] Stand Alone Forms: MyHealth Info Instructions
--- NOTE | 2025-01-26 17:57 | CRLHL7_ITS ---
For Patients: As a result of the Century Cures Act, medical imaging exams and procedure reports are released immediately into your electronic medical record. You may view this report before your referring provider. If you have questions, please contact your health care provider. Indication: Fall Technique: Noncontrast CT through the cervical spine with multiplanar reformats Comparison: None Findings: Alignment: No acute malalignment appreciated. Bones: No acute fracture. No lytic or blastic lesion. Cervical levels: No acute abnormality appreciated. [id number] spondylosis. Soft tissues: No acute abnormality appreciated. Impression: No acute abnormality appreciated. Please note that all CT scans at this facility use dose modulation, iterative reconstruction, and/or weight-based dosing when appropriate to reduce radiation dose to as low as reasonably achievable. Dictated by Prakash Bal MD @ 01/26/2025 7:25:52 PM (Electronically Signed)
--- NOTE | 2025-01-26 17:57 | CRLHL7_ITS ---
For Patients: As a result of the Century Cures Act, medical imaging exams and procedure reports are released immediately into your electronic medical record. You may view this report before your referring provider. If you have questions, please contact your health care provider. Indication: Fall Technique: Noncontrast CT through the head with multiplanar reformats Comparison: None Findings: Brain: No acute hemorrhage. No acute infarct. No significant mass effect or midline shift. No gross evidence of a mass lesion or cerebral edema. Mild chronic senescent disease. Ventricles: No acute abnormality appreciated. Orbits, sinuses, mastoids: No acute abnormality appreciated. Calvarium and soft tissues: No acute abnormality appreciated. Impression: No acute abnormality appreciated. Please note that all CT scans at this facility use dose modulation, iterative reconstruction, and/or weight-based dosing when appropriate to reduce radiation dose to as low as reasonably achievable. Dictated by Prakash Bal MD @ 01/26/2025 7:24:47 PM (Electronically Signed)
--- NOTE | 2025-01-26 17:57 | CRLHL7_ITS ---
For Patients: As a result of the Century Cures Act, medical imaging exams and procedure reports are released immediately into your electronic medical record. You may view this report before your referring provider. If you have questions, please contact your health care provider. Indication: Fall, right low back and right scapular pain Technique: Noncontrast CT of the chest, abdomen, and pelvis with multiplanar reformats. Comparison: None Findings: Chest: Lungs: No consolidation. No effusion. No pneumothorax. Areas of mild atelectasis and/or scarring are noted. Mediastinum: No acute abnormality appreciated. Calcified coronary arterial and aortic atherosclerosis. Lymph nodes: No gross lymphadenopathy. Soft tissues: No acute abnormality appreciated. Bones: No acute abnormality appreciated. Degenerative changes of the spine. Visualized portions of the right scapula are without acute abnormality. Abdomen and Pelvis: Hepatobiliary: No significant parenchymal abnormality is appreciated. Spleen: Unremarkable. Pancreas: No acute abnormality appreciated. Adrenal glands: No acute abnormality appreciated. Kidneys: No significant parenchymal abnormality appreciated. No visualized calculi. No hydronephrosis. Bowel: No obstruction. No focal perienteric or pericolonic stranding is appreciated. The appendix is visualized and appears unremarkable. Vascular: Poorly evaluated on this noncontrast examination. Calcified atherosclerosis. Lymph nodes: No gross lymphadenopathy. Peritoneum: No free air. No free fluid. : No acute abnormality appreciated. Soft tissues: No acute abnormality appreciated. Bones: No acute fracture. No lytic or blastic lesion. Degenerative changes of the spine and pelvis. Sacral stimulator noted. Impression: Chronic findings as above with no acute abnormality appreciated. Please note that all CT scans at this facility use dose modulation, iterative reconstruction, and/or weight-based dosing when appropriate to reduce radiation dose to as low as reasonably achievable. Dictated by Prakash Bal MD @ 01/26/2025 6:53:16 PM (Electronically Signed)
--- NOTE | 2025-01-26 18:38 | CRLHL7_ITS ---
For Patients: As a result of the Cures Act, medical imaging exams and procedure reports are released immediately into your electronic medical record. You may view this report before your referring provider. If you have questions, please contact your health care provider. Indication: Fall onto right shoulder Technique: Three views of the right shoulder Comparison: None Findings/Impression: Moderate osteoarthritis with no acute radiographic abnormality appreciated. Dictated by Prakash Bal MD @ 01/26/2025 7:19:59 PM (Electronically Signed)
--- OUTSIDE RECORDS SUMMARY | 2025-01-26 18:47 | XMS_ITS | Clinical Summary ---
Author Organization [facility] Address [address] [place] [id number] Care Team Providers Care International Project Engineer Name Role Phone Jason Quiros MD Primary Care Provider [phone] Allergies Active Allergy Reactions Criticality Noted Date Comments Atorvastatin Muscle Weakness,Myalgia 02/21/2012 Fish Containing Products Anaphylaxis,Respirato ry Distress High 02/28/2012 Per patient report Fish Derived Anaphylaxis High 03/22/2021 Morphine Nausea And Vomiting 08/29/2019 Penicillins Hives High 01/06/2007 Shellfish Containing Products Anaphylaxis,Respirato ry Distress 02/28/2012 Per patient report Medications polyethylene glycoL (MIRALAX) 17 gram/dose powder Measure 17g in the cap provided and dissolve completly in 8 ounces of liquid as directed and drink TWICE a day 1054 g 03/01/2012 2:51 PM TRANSPORTATION REFRIGERATION TECHNICIAN 2 Active atenolol (TENORMIN) 25 mg tablet Take 25 mg by mouth once daily. 2 5 Active albuterol (PROAIR RESPICLICK) 90 mcg/actuation INHALER Inhale 2 Puffs by mouth every 4 hours. Use as needed 0 6 Active hydrOXYzine pamoate (VISTARIL) 25 mg capsuleIndications :Persistent mood disorder TAKE ONE (1) CAPSULE BY MOUTH AT BEDTIME 30 capsule 7 Active simvastatin (ZOCOR) 20 mg tablet Take 20 mg by mouth at bedtime. Active tamsulosin (FLOMAX) 0.4 mg capsule Take 0.4 mg by mouth once daily after a meal. Active temazepam (RESTORIL) 30 mg capsule Take 30 mg by mouth at bedtime. Active diazePAM (VALIUM) 5 mg tabletIndications: anxiety Take 5 mg by mouth 3 times daily if needed. 2 tablets at HS Indications: anxious Active montelukast (SINGULAIR) 10 mg tablet Take 10 mg by mouth at bedtime. Active celecoxib (CELEBREX) 200 mg capsule Take 200 mg by mouth once daily with a meal. Active ALPRAZolam ER (XANAX XR) 3 mg tablet Take 3 mg by mouth every morning. 2 tablets daily Active pantoprazole (PROTONIX) 40 mg delayed-release tablet Take 40 mg by mouth 2 times daily before meals. Active fluticasone prp-sod.chl,bicarb 50 mcg- 0.9 % ksps Inhale in the nostril(s). Active gemfibroziL (LOPID) 600 mg tablet Take 600 mg by mouth 2 times daily before meals. Active ondansetron (ZOFRAN ODT) 4 mg disintegrating tabletIndications: Nausea Place 1 tablet on the tongue every 6 hours if needed. 20 tablet 09/02/2019 1:59 PM CDT 0 Active Active Problems Problem Noted Date Diagnosed Date Asthma 03/12/2023 Benign prostatic hyperplasia with urinary obstru ction 02/06/2023 Retention of urine 10/31/2022 Left knee pain 10/30/2022 Overview (06/07/2023): Improved Pain in back 10/30/2022 Overview (06/07/2023): Xray in hospital of lumbar spine. Calculus of ureter 07/15/2022 Morbid obesity 08/30/2019 Ileitis, regional 08/29/2019 Restless leg syndrome 01/24/2016 Persistent mood (affective) disorder, unspecifie d 02/02/2015 Mood disorder 02/02/2015 Ob[address] Cuellar for managment of sleep meds 04/05/2014 Obstructive sleep apnea syndrome 04/05/2014 Overview (06/07/2023): No CPAP last night. 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 10/18/2011 Galvin's esophagus 04/23/2011 Dysphagia 04/23/2011 Resolved Problems Problem Noted Date Diagnosed Date Resolved Date Anxiety state, unspecified 04/23/2011 0 10/18/2011 Immunizations Immunization Administration Dates Next Due COVID-19 vaccine (Moderna 100mcg/0.5mL) PF, MDV 04/14/2020 Influenza, High-dose Inactivated 12/01/2010 Influenza, High-dose Quadriv alent Inactivated 12/21/2020 Influenza, IIV3 (Age >=3 years) 03/19/19 18,01/06/2015,02/09/2014,11/26,12/01/2010 Influenza, IIV4 (=>6mos) MDV 01/28/2020,12/04/19 18,01/05/2016 Influenza, Inactivated AIIV4 (Age 65+ Years) Preserv Free 11/26/2022 Pneumococcal Conj 20-valent (Prevnar 20) 01/18/2022 Pneumococcal Poly,23-Valent (Pneumovax) 02/28/2012,03/03/2008 RSV, Bivalent Vaccine Recons tituted (Abrysvo 120MCG/0.5mL) 12/04/2022 Tdap 07/11/2022 Tdap, Unspecified 05/15/2008 Family History Medical History Relation Name Comments Heart Disease Father Arthritis Mother Relation Name Status Comments Father Mother Social History Tobacco Use Types Packs/Day Years Used Date Smoking Tobacco: Never Smokeless Tobacco: Never Tobacco Cessation:Counseling Given: Yes Alcohol Use Standard Drinks/Week Comments No 0 (1 standard drink = 0.6 oz pur e alcohol) history of alcoholism Interpersonal Safety Answer Date Record ed Are you being hit, kicked, p ushed or yelled at (see row info)? 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 Gender Identity Not on file Sexual Orientation Not on file Obstetrics History Last Filed Vital Signs Vital Sign Reading Time Taken Comments Blood Pressure 171/90 06/07/2023 2:48 PM CDT Pulse 56 06/07/2023 2:48 PM CDT Temperature 36.4 C (97.5 F) 06/07/2023 11:23 AM CDT Respiratory Rate 18 06/07/2023 11:23 AM CDT Oxygen Saturation 95% 06/07/2023 2:48 PM CDT Inhaled Oxygen Concentration - - Weight 119.3 kg (263 lb) 06/07/2023 11:23 AM CDT Height 175.3 cm (5' 9) 06/07/2023 11:23 AM CDT Body Mass Index 38.84 06/07/2023 11:23 AM CDT Plan of Treatment Health Maintenance Due Date Last Done Comments Hepatitis C screening for age 18-79 1974 Zoster (shingles) series for age 50+ (1 of 2) 2006 Lipids for age 45-75 12/04/2015 12/03/2010 (Completed outside of [facility]) BMI (ht and wt on same day) for age 18+ 11/19/2016 11/20/2015, 07/11/2015, 06/06/2015, Additional history exists Depression screening for age 12+ 11/19/2016 11/20/2015, 08/25/2015, 07/11/2015, Additional history exists Colonoscopy through age 75 03/02/202103/02 (Completed outside of [facility]) Influenza Vaccine (#1) 2024 3, 01/28/2020, 12/03/2017, Additional history exists Tetanus booster 07/11/2032 07/11/2022, 05/15/2008 Pneumococcal series for age 50+ Completed 01/18/2022, 02/28/2012, 03/03/2008 RSV vaccine for adults or Completed 12/04/2022 Hepatitis B series for 19+ Aged Out N o longer eligible based on patient's age to complete this topic Insurance BLUE CROSS [place] BLUE HB ONLY MEDICARE PART B HB ONLY MEDICARE PART A HB ONLY Advance Directives * Full Code (Latest Code Status on File) Date Activated Date Inactivated Comments 08/30/2019 12:38 AM 09/02/2019 4:59 PM * Full Code Date Activated Date Inactivated Comments 02/28/2012 3:55 AM 03/02/2012 5:50 PM * Full Code Date Activated Date Inactivated Comments 04/23/2011 10:37 AM 04/23/2011 7:01 PM * Full Code Date Activated Date Inactivated Comments 04/22/2011 8:56 PM 04/23/2011 10:37 AM Care Teams International Project Engineer Relationship Specialty Start Date End Date Jason Quiros MD PCP - General Family Practice 07/11/15
--- OUTSIDE RECORDS SUMMARY | 2025-01-26 18:47 | XMS_ITS | Encounter Summary ---
Author Organization [facility] Address [address] [place] [address] Care Team Providers Care Box Tender Name Role Phone Elsewhere, Pcp Primary Care Provider Unavailabl e Encounter Details Date Type Department Care Team (Late st Contact Info) Description 12/23/2024 Results Follow-Up Department of Urology in [place], [place] [address] [place] [phone] Mary Estes M.D. [address] [place] [phone] Urinalysis, with Microscopic: Urine, Midstream, Bacterial Culture, Aerobic + Susceptibility, Urine Social History Tobacco Use Types Packs/Day Years Used Date Smoking Tobacco: Never Smokeless Tobacco: Never Alcohol Use Standard Drinks/Week Comments Not Currently 0 (1 standard drink = 0.6 oz pur e alcohol) quit 1993 [facility] Utilities Answer Date Recorded In the past 12 months has [facility] [employer], gas, oil, or water [employer] threatened to shut off services in your [...] your living situation today? I have a [facility] place to live 03/12/2023 Sex and Gender Information Value Date Recorded Sex Assigned at Male 07/18/2017 9:35 AM CDT Legal Sex Male 4:00 PM [employer] Gender Identity Male 07/18/2017 9:35 AM CDT Sexual Orientation Straight 07/18/2017 9: 35 AM CDT documented as of this encounter Plan of Treatment Scheduled Procedures Name Priority Associated Diagnoses Date/Ti me URETEROSCOPY STONE EXTRACTION Stone Ureteral documented as of this encounter Visit Diagnoses Not on filedocumented in this encounter Care Teams Box Tender Relationship Specialty Start Date End Date Elsewhere, Pcp PCP - General Internal Medicine 07/15/22 documented as of this encounter"
--- OUTSIDE RECORDS SUMMARY | 2025-01-26 18:47 | XMS_ITS | Encounter Summary ---
Author Organization [facility] Address [address] [place] [id number] Care Team Providers Care Philosophy Lecturer Name Role Phone Elsewhere, Pcp Primary Care Provider Unavailabl e Reason for Visit * Reason Onset Date Comments Communication 12/16/2024 Encounter Details Date Type Department Care Team (Late st Contact Info) Description 12/16/2024 Clinical Communication Department of Urology in [place], [place] [address] [place] [phone] Mary Estes M.D. [address] [place] [phone] Communication Social History Tobacco Use Types Packs/Day Years Used Date Smoking Tobacco: Never Smokeless Tobacco: Never Alcohol Use Standard Drinks/Week Comments Not Currently 0 (1 standard drink = 0.6 oz pur e alcohol) quit 1993 [facility] Utilities Answer Date Recorded In the past 12 months has e [facility] [employer], gas, oil, or water [employer] threatened to shut off services in your [...] your living situation today? 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 - 12/21/2024 11:18 AM CDT Called and spoke to pt. Pt is wondering when he could get into to see Dr. Estes. Pt is still having issue with right sided back pain that comes and goes. Pt wondering if is more muscular or if it is a kidney concern. Also, pt states he seems to have worsening urinary urgency and frequency. 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 He is very conscious of his clothes getting wet. Pt was recently seen by Dr. Mejia on 12/02/24 and had right sided back pain assessed and per the office visit note Back pain Right-sided back pain does not seem consistent with a renal issue. Area of InterStim device insertion was nontender, no erythema. Association with movement suggests a musculoskeletal cause. Ultrasound performed earlier today was reassuring, no hydronephrosis, no renal calculi. Patient was reassuredand should follow up with his primary care provider if he continues to have ongoing back pain. Pt is currently on program C setting 2-3. Pt states his BM's are good and that is no longer a concern but the urinary dripping is. Pt is not using a incontinence product such as pad or briefs. Pt is reluctant to do the 24 hour urine because of the time it would take to do the test and refrigerationof the urine. Discussed the reason for the 24 hour urine as ordered for assessment stone formation risk. It wouldgive Dr. Estes more information if testing was completed. Discussed how to perform the test. Pt reluctantly agrees to completing test and that maybe he will complete it this Friday and turn it in.Pt should then follow up Dr. Estes in office to go over results. Discussed usage of urinary incontinence briefs and/or pads especially when at work seems it is concerning for him. Pt seems to be agreeable to this and will check at a local pharmacy or store that has these products. Pt denies hematuria, fever, chills, concerns of a UTI. Pt does want to know from Dr. Estes if he has any recommendations for the urinary urges and dripping before he sees him next. documented in this encounter Plan of Treatment Scheduled Procedures Name Priority Associated Diagnoses Date/Ti va URETEROSCOPY STONE EXTRACTION Stone Ureteral documented as of this encounter Visit Diagnoses Not on filedocumented in this encounter Care Teams Philosophy Lecturer Relationship Specialty Start Date End Date Elsewhere, Pcp PCP - General Internal Medicine 07/15/22 documented as of this encounter
--- OUTSIDE RECORDS SUMMARY | 2025-01-26 18:47 | XMS_ITS | Clinical Summary ---
Author Organization [facility] Address [address] [place] [id number] Care Team Providers Care Pulp Drier Name Role Phone Elsewhere, Pcp Primary Care Provider Unavailabl e Source Comments Patient records contain information from all sites at [facility]. For routine questions regarding patient records, call [phone] during business hours, M-F 8:00 AM - 5:00 PM Central Time. Record requests for emergency care only can be directed to [phone] at any time.[facility] Allergies Active Allergy Reactions Criticality Noted Date Comments Atorvastatin Myalgia 02/21/2012 Fish Derived Anaphylaxis High 03/22/2021 Levofloxacin Other (see comments) 12/02/2023 Intolerance to Levaquin. Facial flushing but could have been from being in the sun since he did not realize he should not be in the sun. Morphine Nausea And Vomiting 08/29/2019 Penicillins Hives (Reselect Reaction) 02/21/2012 Shellfish Containing Products Anaphylaxis 02/28/2012 Per patient report Medications albuterol sulfate 90 mcg/actuation aerosol powdr breath activated Inhale 2 puffs every 4 (four) hours as needed for shortness of breath. 6 Active gemfibrozil (for_LOPID) 600 mg tablet Take 1 tablet by mouth at bedtime. 2 Active hydrOXYzine (for_VISTARIL) 25 mg capsule Take 25 mg by mouth at bedtime. 7 Active pantoprazole (for_PROTONIX) 40 mg EC tablet Take 1 tablet by mouth daily. 7 Active diazePAM (for_VALIUM) 5 mg tablet Take 10 mg by mouth at bedtime. Active temazepam (RESTORIL) 30 mg capsule Take 30 mg by mouth at bedtime. 1 9 Active Constulose 10 gram/15 mL solution Take 10 g by mouth daily. 0 Active ramipriL (ALTACE) 2.5 mg capsule Take 2.5 mg by mouth daily. 1 Active MAGNESIUM ORAL Take 300 mg by mouth every morning before breakfast. Active rosuvastatin (CRESTOR) 20 mg tablet Take 20 mg by mouth at bedtime. 3 Active propranoloL (INDERAL) 40 mg tablet Take 40 mg by mouth 2 (two) times a day. 3 Active ALPRAZolam XR (XANAX XR) 3 mg 24 hr tablet Take 6 mg by mouth daily as needed. Active FLUTICASONE PROPIONATE NASAL Administer 2 sprays into nostril(s) daily as needed. Active budesonide-formote roL (SYMBICORT) 160-4.5 mcg/actuation inhaler Inhale 2 puffs 2 (two) times a day as needed. Takes when has a cold. Rinse mouth with water after use to reduce aftertaste and incidence of candidiasis. Do not swallow. Active gabapentin (NEURONTIN) 300 mg capsule Take 300 mg by mouth 2 (two) times a day. 3 Active polyethylene glycol (MIRALAX) 17 gram powder packet Take 17 g by mouth daily as needed. Dissolve each 17 g dose in 240 mLs (8 ounces) of beverage. Active acetaminophen (TYLENOL) 500 mg tablet Take 2 tablets (1,000 mg total) by mouth every 6 (six) hours. 160 tablet 2 3 Active carboxymethylcellu lose (REFRESH PLUS) 0.5 % ophthalmic solution Administer 1 drop into both eyes 3 (three) times a day as needed for dry eyes. 1 each 2 3 Active celecoxib (CeleBREX) 200 mg capsule Take 1 capsule (200 mg total) by mouth 2 (two) times a day. 180 capsule 3 3 Active cyclobenzaprine (FLEXERIL) 10 mg tablet Take 10 mg by mouth at bedtime as needed. 3 Active traMADoL-acetamino phen (ULTRACET) 37.5-325 mg per tablet Take by mouth daily as needed. Takes when working 3 Active sucralfate (CARAFATE) 100 mg/mL suspension Take 1 g by mouth as needed (for his esophagus). 4 Active bumetanide (BUMEX) 1 mg tablet Take 1 mg by mouth daily as needed (Uses for fluid in his knee). 4 Active famotidine (Pepcid) 20 mg tablet Take 20 mg by mouth 2 (two) times a day. Active semaglutide (Ozempic) 1 mg/dose (4 mg/3 mL) injection Inject 1 mg under the skin every 7 (seven) days. Active neomycin-polymyxin -HC (Cortisporin) 3.5-10,000-1 mg/mL-unit/mL-% otic solution 5 Active neomycin-polymyxin -dexamethasone (Maxitrol) 3.5mg/mL-10,000 unit/mL-0.1 % ophthalmic suspension 5 Active senna 8.6 mg tablet TAKE 2 TABLETS BY MOUTH DAILY 100 tablet 11 5 Active oxyCODONE (Roxicodone) 10 mg IR tablet Take 1 tablet by mouth daily. 5 Active ondansetron ODT (Zofran-ODT) 4 mg disintegrating tablet Dissolve 1 tablet (4 mg total) in the mouth every 8 (eight) hours as needed for nausea or vomiting. 20 tablet 5 Active oxyBUTYnin (Ditropan) 5 mg tablet Take 1 tablet (5 mg total) by mouth 3 (three) times a day as needed (bladder spasms). Take as needed for bladder spasms or stent irritation 20 tablet 1 5 Active traMADoL (Ultram) 50 mg tablet 5 Active Active Problems Problem Noted Date Diagnosed Date Transurethral Resection Prostate Status Post Neuromuscular Dysfunction Of Bladder Unspecified 04/01/2024 Incomplete Bladder Emptying 11/13/2023 Asthma NOS 03/12/2023 Benign Prostatic Hyperplasia Hypertrophy With Ob struction 02/06/2023 Retention Urinary 10/31/2022 Pain Knee Left 10/30/2022 Overview (10/31/2022): Improved Pain Back 10/30/2022 Overview (10/30/2022): Xray in hospital of lumbar spine. Stone Ureteral 07/15/2022 Morbid Severe Obesity Due To Excess Calories Restless Leg Syndrome 01/24/2016 Persistent Mood Disorders 02/02/2015 Apnea Sleep Obstructive 04/05/2014 Overview (10/31/2022): No CPAP last night. 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 Abdominal Pain 12/23/2024 2:31 PM CDT - 12/23/2024 11:59 PM CDT Hospital Encounter Department of Laboratory Medicine in [address] [address] Mary Estes M.D. Pyuria Discharge Disposition: Home or Self Care 12/23/2024 2:30 PM CDT Office Visit Department of Orthopedic Surgery in [address] [address] Roland Loredo P.A.-Shana., P.A., M.S. Aftercare Total Knee Arthroplasty (Primary Dx); Primary Osteoarthritis Knee Right Discharge Disposition: Home or Self Care 12/23/2024 1:33 PM CDT - 12/23/2024 2:30 PM CDT Hospital Encounter Department of Radiology, [facility], in [address] [place] [address] Roland Loredo P.A.-C., P.A., M.S. Aftercare Total Knee Arthroplasty Discharge Disposition: Home or Self Care 12/23/2024 Results Follow-Up Department of Urology in [address] [address] Mary Estes M.D. Urinalysis, with Microscopic: Urine, Midstream, Bacterial Culture, Aerobic + Susceptibility, Urine 12/21/2024 Orders Only Department of Urology in [address] [address] Mary Estes M.D. Pyuria (Primary Dx) 12/16/2024 Clinical Communication Department of Urology in [address] [address] Mary Estes M.D. Communication 12/02/2024 1:30 PM CDT Office Visit Department of Urology in [address] [phone] Denver Mejia M.D. 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 Stone Ureteral Discharge Disposition: Home or Self Care 12/02/2024 9:44 AM CDT Hospital Encounter Department of Laboratory Medicine in [address] [address] Mary Estes M.D. Stone Ureteral Discharge Disposition: Home or Self Care 12/02/2024 9:04 AM CDT - 12/02/2024 9:43 AM CDT Hospital Encounter Department of Radiology in [place] [address] [place] [address] Mary Estes M.D. Stone Ureteral Discharge Disposition: Home or Self Care 11/25/2024 Refill Department of Radiology in [address] [address] Jason Quiros M.D. Med Refill 11/09/2024 Results Follow-Up Department of Urology in [address] [address] Mary Estes M.D. Kidney Stone Analysis, Basic Metabolic Panel, Magnesium, Additional followed-up results: 3 11/04/2024 11:30 AM CDT Nurse Only Department of Urology in [address] [address] Mary Estes M.D. Mayer, Paula R, R.N. Nurse Visit (Pt here today for ureteral stent removal via tether per Dr. Estes order. ) Discharge Disposition: Home or Self Care 10/28/2024 1:55 PM CDT - 10/28/2024 3:01 PM CDT Surgery Out[facility] in [address] [address] Mary Estes M.D. URETEROSCOPY WITH LASER LITHOTRIPSY 10/28/2024 1:42 PM CDT Anesthesia Event Outpatient Procedure Center in [address] [address] Alina Murray M.D. Gina Armenta, OIL WELL SERVICES DISPATCHER, HIDE DROPPER, DNAP 10/28/2024 10:55 AM CDT - 10/28/2024 4:06 PM CDT Hospital Encounter Outpatient Procedure Center in [address] [address] Mary Estes M.D. Stone Ureteral Discharge Disposition: Home or Self Care 10/26/2024 9:24 AM CDT - 10/26/2024 11:59 PM CDT Hospital Encounter Department of Laboratory Medicine in [place] [address] [place] [address] Mary Estes M.D. Stone Ureteral Discharge Disposition: Home or Self Care 10/26/2024 8:00 AM CDT Office Visit Department of Urology in [place] [address] [place] [address] Mary Estes M.D. 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 (Primary Dx); Stone Ureteral Discharge Disposition: Home or Self Care from Last 3 Months Immunizations Immunization Administration Dates Next Due Influenza TIV (IM) 12/01/2010 Influenza, Injectable, Quadrivalent 01/28/2020,1 ,01/05/2016 Influenza, Seasonal, Injectable 03/19/19 18,01/06/2015,02/09/2014,2011,12/01/2010 PPSV23 02/28/2012,03/03/2008 SARS-COV-2 (COVID-19) - MODERNA(Discontinued) 05/12/2020,04/14/2020 Tdap 05/15/2008 Family History Medical History Relation Name Comments Heart disease Brother Heart disease Father Arthritis Mother Relation Name Status Comments Brother Father Mother Other rheumatoid arth ritis Social History Tobacco Use Types Packs/Day Years Used Date Smoking Tobacco: Never Smokeless Tobacco: Never Tobacco Cessation:Counseling Given: Not Answered Alcohol Use Standard Drinks/Week Comments Not Currently 0 (1 standard drink = 0.6 oz pur e alcohol) quit 1993 [facility] Utilities Answer Date Recorded In the past 12 months has e [employer], gas, oil, or water [employer] threatened to shut off services in your [...] your living situation today? 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 Gender Identity Male 07/18/2017 9:35 AM CDT Sexual Orientation Straight 07/18/2017 9: 35 AM CDT Last Filed Vital Signs Vital Sign Reading Time Taken Comments Blood Pressure 131/76 10/28/2024 3:50 PM CDT Pulse 70 12/23/2024 2:03 PM CDT Temperature 36.7 C (98.1 F) 12/23/2024 2:03 PM CDT Respiratory Rate 11 10/28/2024 3:50 PM CDT Oxygen Saturation 95% 12/23/2024 2:03 PM CDT Inhaled Oxygen Concentration - - Weight 123 kg (270 lb 15.1 oz) 10/28/2024 12:09 PM CDT Height 175.3 cm (5' 9) 10/28/2024 12:09 PM CDT Body Mass Index 40.01 10/28/2024 12:09 PM CDT Plan of Treatment Scheduled Procedures Name Priority Associated Diagnoses Date/Ti me URETEROSCOPY STONE EXTRACTION Stone Ureteral Health Maintenance Due Date Last Done Comments CT Colonography 1955 Cologuard 1955 FIT 1955 Hepatitis C Screening 1955 Zoster Vaccines (1 of 2) 2006 Colonoscopy 03/09/2022 03/09/2012 (Perf ormed elsewhere) Colorectal Cancer Screening 03/09/2022 Depression Screening (Annual PHQ-2) 03/03/2024 COVID-19 Vaccine ( season) 2024 11/06/2023, 12/04/2022, 11/20/2021, Additional history exists Influenza Vaccine (#1) 2024 , 11/26/2022, 12/21/2020, Additional history exists Creatinine Level (Kidney Function Test) 12/02/2025 12/02/2024, 10/17/2024, 10/18/2023, Additional history exists Potassium Level 12/02/2025 12/02/2024, 10/01, 10/18/2023, Additional history exists Sodium Level 12/02/2025 12/02/2024, 10/01, 10/18/2023, Additional history exists Fasting Glucose for Diabetes Screening 12/03/2027 12/02/2024, 10/28/2024, 10/28/2024, Additional history exists DTaP,Tdap,and Td Vaccines (3 - Td or Tdap) 07/11/2032 07/11/2022, 05/15/2008 Pneumococcal vaccine (50+ years) Completed 01/18/2022, 02/28/2012, 03/03/2008 RSV vaccine - (32-36 weeks) or 50+ years Completed 12/04/2022 Fall Risk Screen (Annual) Completed 10/28/2024 IPV Vaccines Aged Out No longer eligi ble based on patient's age to complete this topic Medical Devices Implanted Type Area Mill Laborer Device Identifier Shelf Expiration Date Model / Serial / Lot Cmnt-R Bn 1x40 - Sna - [id number] Implanted:Qty: 1 on 10/30/2022 by Hank Farrar D.O. at [facility] Bone Cement Left: Knee [employer] [id number] 12/31/2024 [id number] / NA / [id number] Cmnt-R Bn 1x40 - Sna - [id number] Implanted:Qty: 1 on 10/30/2022 by Hank Farrar D.O. at [facility] Bone Cement Left: Knee [employer] [id number] 12/31/2024 [id number] / NA / [id number] The Personalized Knee System Implanted:Qty: 1 on 10/30/2022 by Hank Farrar D.O. at [facility] Knee Implant Left: Knee [employer] [id number] 06/05/2032 [id number] / NA / [id number] The Personalized Knee System Left Implanted:Qty: 1 on 10/30/2022 by Hank Farrar D.O. at [facility] Knee Implant Left: Knee [employer] [id number] 08/23/2032 [id number] / NA / [id number] The Personalized Knee System Natural Tibia Implanted:Qty: 1 on 10/30/2022 by Hank Farrar D.O. at [facility] Knee Implant Left: Knee [employer] [id number] 07/26/2032 [id number] / NA / [id number] The Personalized Knee System Implanted:Qty: 1 on 10/30/2022 by Hank Farrar D.O. at [facility] Knee Implant Left: Knee [employer] [id number] 06/24/2027 [id number] / NA / [id number] The Personalized Knee System Vivacit-E Highly Crosslinked Polyethylene Implanted:Qty: 1 on 10/30/2022 by Hank Farrar D.O. at [facility] Knee Implant Left: Knee [employer] [id number] 06/08/2027 [id number] / NA / [id number] Interstim Sure Scan Mri Lead Kit Implanted:Qty: 1 on 12/10/2023 by Mary Estes M.D. at [facility] Sacral Nerve Stimulator N/A: Back Covidien (Div of Medtronic) 08/24/2025 [id number] / / [id number] Stnt Uret Inl 6fx26 - Sna - [id number] Implanted:Qty: 1 on 10/28/2024 by Mary Estes M.D. at [facility] Ureteral Stent Right: Ureter C.R.Bard 07/09/2028 [id number] / NA / [id number] Interstim X Implanted:Qty: 1 on 12/31/2023 by Mary Estes M.D. at [facility] Urologic Other N/A: Buttock Medtronic 03/30/2025 [id number] / [id number] / NA Description:Right/medial upp er buttock/lower back Explanted Type Area Mill Laborer Device Identifier Shelf Expiration Date Model / Serial / Lot Stnt Uret Inl 7fx26 - [id number] Implanted:Qty : 1 on 07/15/2022 by eNd Hobbs M.D. at [facility] Ureteral Stent C.R.Bard [id number] 01/24/2026 [id number] / / [id number] Procedures Procedure Name Priority Date/Time Associated Diagnosis Comments URINALYSIS WITH MICROSCOPIC Routine 12/23/2024 2:38 PM CDT Pyuria BACTERIAL CULTURE, AEROBIC + SUSC, URINE Routine 12/23/2024 2:38 PM CDT Pyuria DX KNEE BILATERAL 4+ VIEWS RAD - Routine (most inpatients and all outpatients) 12/23/2024 1:54 PM CDT Aftercare Total Knee Arthroplasty URIC ACID, S/P Routine 12/02/2024 10:09 AM CDT Stone Ureteral PHOSPHORUS (INORGANIC), S Routine 12/02/2024 10:09 AM CDT Stone Ureteral MAGNESIUM, S Routine 12/02/2024 10:09 AM CDT Stone Ureteral BASIC METABOLIC PANEL, S/P Routine 12/02/2024 10:09 AM CDT Stone Ureteral US KIDNEYS BILATERAL WITH BLADDER RAD - Routine (most inpatients and all outpatients) 12/02/2024 9:52 AM CDT Stone Ureteral GLUCOSE POCT, B Routine 10/28/2024 2:53 PM CDT FL FLUORO LESS THAN 1 HOUR RAD - Routine (most inpatients and all outpatients) 10/28/2024 2:40 PM CDT KIDNEY STONE ANALYSIS Routine 10/28/2024 2:07 PM CDT Stone Ureteral LDA ANE ENDOTRACHEAL AIRWAY Routine 10/28/2024 1:46 PM CDT RETROGRADE PYELOGRAM 10/28/2024 1:41 PM CDT Stone Ureteral CYSTOSCOPY INSERTION STENT URETER 10/28/2024 1:41 PM CDT Stone Ureteral URETEROSCOPY WITH LASER LITHOTRIPSY 10/28/2024 1:41 PM CDT Stone Ureteral GLUCOSE POCT, B Routine 10/28/2024 12:30 PM CDT ECG Routine 10/26/2024 9:31 AM CDT Stone Ureteral from Last 3 Months Results * Bacterial Culture, Aerobic + Susceptibility, Urine (12/23/2024 2:38 PM CDT) Urine Culture Urogenital microbiota, susceptibilities not performed per laboratory criteria. 12/24/2024 1:19 PM CDT MKTO Urine (Urine, Midstream) 12/23/2024 2:38 PM CDT 12/23/2024 4:37 PM CDT Comment:Specimen Source Site : Urine us Mary Estes M.D. LAB MICROBIOLOGY - GENE RAL ORDERABLES Final Result [facility] [address] [place] [address], [facility] MKTO [facility] [place] [address] [place] [address] * (ABNORMAL) Urinalysis, with Microscopic: Urine, Midstream [...] 8.0 12/23/2024 2:47 PM CDT NPRG Specific [place] <=1.005 1.001 - 1.035 12/23/2024 2:47 PM [...] M.D. LAB URINE ORDERABLES Fi nal Result [facility] [address] [place] [address], [facility] NPRG [facility] [address] [place] [address] * DX Knee Bilateral 4+ Views (12/23/2024 [...] left total knee arthroplasty. Roland Loredo P.A.-C., P.Kelsy., M.S. IMG DIAGNOSTIC IMAGING PROCEDURES Final Result * Uric Acid (12/02/2024 10:09 AM CDT) Uric Acid, P 6.0 3.7 - 8.0 mg/dL 12/02/2024 10:30 AM CDT NPRG Blood (Blood, Venous) 12/02/2024 10:09 AM CDT 12/02/2024 10:11 AM CDT Mary Estes M.D. LAB BLOOD ADD-ON Final Result Performing Organization Address City/[facility]/ZIP Co de Phone Number [facility] [address] [place], [place] [id number] [place] [address] NPRG [place] [address] [place] [address] * Phosphorus Inorganic (12/02/2024 10:09 AM CDT) Phosphorus (Inorganic), P 3.2 2.5 - 4.5 mg/dL 12/02/2024 10:30 AM CDT NPRG Blood (Blood, Venous) 12/02/2024 10:09 AM CDT 12/02/2024 10:11 AM CDT Mary Estes M.D. LAB BLOOD ADD-ON Final Result [facility] [address] [place] [address], [facility] NPRG [place] [address] [place] [address] * Magnesium (12/02/2024 10:09 AM CDT) Magnesium, P 2.0 1.7 - 2.3 mg/dL 12/02/2024 10:30 AM CDT NPRG Blood (Blood, Venous) 12/02/2024 10:09 AM CDT 12/02/2024 10:11 AM CDT us Mary Estes M.D. LAB BLOOD ADD-ON Final Result [facility] [address] [place] [address], [place] NPRG [facility] [address] [place] [address] * (ABNORMAL) Basic Metabolic Panel (12/02/2024 10:09 AM CDT) Pathologist [facility] Potassium, P 4.2 3.6 - 5.2 mmol/L 12/02/2024 10:30 AM CDT NPRG Sodium, P 136 135 - 145 mmol/L 12/02/2024 10:30 AM CDT NPRG Chloride, P 105 98 - 107 mmol/L 12/02/2024 10:30 AM CDT NPRG Bicarbonate, P 22 22 - 29 mmol/L 12/02/2024 10:30 AM CDT NPRG Anion Gap, P 9 7 - 15 12/02/2024 10:30 AM CDT NPRG BUN (Blood Urea Nitrogen), P 16 8 - 24 mg/dL 12/02/2024 10:30 AM CDT NPRG Creatinine 0.83 0.74 - 1.35 mg/dL 12/02/2024 10:30 AM CDT NPRG Estimated GFR (eGFR) >90 >=60 mL/min/BSA 12/02/2024 10:30 AM CDT NPRG Comment: Estimated GFR calculated using the 2020 CKD_EPI creatinine equation. Calcium, Total, P 8.9 8.8 - 10.2 mg/dL 12/02/2024 10:30 AM CDT NPRG Glucose, P 214(H) 70 - 140 mg/dL 12/02/2024 10:30 AM CDT NPRG Blood (Blood, Venous) 12/02/2024 10:09 AM CDT 12/02/2024 10:11 AM CDT us Mary Estes M.D. LAB BLOOD ADD-ON Final Result [facility] [address] [place] [address], [facility] NPRG [facility] [address] [place] [address] * US Kidneys Bilateral with Bladder (12/02/2024 9:52 AM CDT) Anatomical Region Laterality Modality Abdomen, Renal, Ultrasound R ST LOS, Ultrasound ARZ LOS, Ultrasound FLA LOS Bilateral Ultrasound Impressions 12/02/2024 10:15 AM CDT Normal renal ultrasound. No hydronephrosis. Narrative 12/02/2024 10:15 AM CDT EXAM: US KIDNEYS BILATERAL WITH BLADDER COMPARISON: CT 10/17/2024 FINDINGS: Right kidney: 13.3 cm Cortical thickness: Normal. Parenchymal echogenicity: Normal. Collecting system: No hydronephrosis. Masses: None detected. Left kidney: 12.3 cm Cortical thickness: Normal. Parenchymal echogenicity: Normal. Collecting system: No hydronephrosis. Masses: None detected. Bladder: Normal. Procedure Note Jevon Vee D.O. - 12/02/2024 EXAM: US KIDNEYS BILATERAL WITH BLADDER COMPARISON: CT 10/17/2024 FINDINGS: Right kidney: 13.3 cm Cortical thickness: Normal. Parenchymal echogenicity: Normal. Collecting system: No hydronephrosis. Masses: None detected. Left kidney: 12.3 cm Cortical thickness: Normal. Parenchymal echogenicity: Normal. Collecting system: No hydronephrosis. Masses: None detected. Bladder: Normal. IMPRESSION: Normal renal ultrasound. No hydronephrosis. us Mary RICH US PROCEDURES Final Result * Glucose, POCT (10/28/2024 2:53 PM CDT) Only the most recent of2 resultswithin the time period is included. Glucose, POCT, B 96 70 - 140 mg/dL 10/28/2024 2:53 PM CDT MKTO Blood 10/28/2024 2:53 PM CDT 10/28/2024 3:19 PM CDT Generic Rals LAB POCT ORDERABLES-MANUAL Final Result [facility] [address] [place] [address], [facility] MKTO [facility] [place] [address] [place] [address] * FL Fluoro Less Than 1 Hour (10/28/2024 2:40 PM CDT) Narrative [address] SWMN - 10/28/2024 2:41 PM CDT This exam does not require a radiologist review or interpretation. Please refer to the patient's medical record on this date for clinical details. us Mary sEtes M.D. IMG FLUOROSCOPY PROCEDU RES Final Result Performing Organization Address [facility] Co de Phone Number [address] SW[address] * Kidney Stone Analysis (10/28/2024 2:07 PM CDT) Source Stone, Ureter, Right 11/09/2024 12:06 AM CDT [facility] Stone Interpretation 100% Uric acid. 11/09/2024 12:06 AM T [facility] Result Comment For stones containing calcium oxalate, calcium phosphate, and/or uric acid, a 24 hr urinary supersaturation test may help detect underlying risk factors for this type of stone formation and provide guidance for a stone prevention strategy. 11/09/2024 12:06 AM T [facility] Comment: ----ADDITIONAL INFORMATION---- This test was developed and its performance characteristics determined by [facility] in a manner consistent with CLIA requirements. This test has not been cleared or approved by the U.S. Food and Drug Administration. Stone (Ureter, Right) 10/28/2024 2:07 PM CDT us Mary Estes M.D. LAB MISC ORDERABLES Fin al Result Performing Organization Address City/[facility]/ZIP Co de Phone Number [facility] [address] [place] [address] [facility] [address] [place] [address] [place] [address] * LDA ANE ENDOTRACHEAL AIRWAY (10/28/2024 1:46 PM CDT) Narrative Gina Armenta APRN, CRNA, DNAP - 10/28/2024 1:46 PM CDT Gina Armenta APRN, CRNA, DNAP 10/28/2024 1:51 PM Airway Date/Time: 10/28/2024 1:46 PM Performed by: Gina Armenta APRN, CRNA, DNAP Authorized by: Alina Murray M.D. Patient location during procedure: OR / Procedure Area PROCEDURE DETAILS: Mask difficulty assessment: not attempted Final airway type: video laryngoscope Laryngeal Manipulation: no Final best view of glottic structures - Cormack/Lehane Score: grade 2A ETT location: oral VL device: glide scope [place] scope blade size: 4 Tube size: 7.5 ETT distance at teeth/gum: 23 Oral tube type: standard ETT Cuffed: yes Leak Test Performed: no Number of attempt to successful placement: 1 Airway confirmation: bilateral breath sounds, positive ETCO2 and bilateral chest rise Other previous techniques attempted: none PRE PROCEDURE DETAILS: Pre evaluation for airway management: procedure Urgency: elective Preop assessment of probable difficulty: questionable / suspicious difficult airway Preoxygenation: bag valve mask SEDATION / ANESTHESIA Anesthesia method: anesthesia POST PROCEDURE DETAILS: Procedure outcome: successful Notable Events: no complications us Alina Murray M.D. ANESTHESIA ORDERABLES Fin al Result * ECG 12 Lead (10/26/2024 9:31 AM CDT) Ventricular Rate ECG/Min 60 BPM MUSE SD Interval 220 ms MUSE QRSD Interval 90 ms MUSE QT Interval 414 ms MUSE QTC Interval 414 ms MUSE P Mcintire 28 degrees MUSE R Mcint[place] 15 degrees MUSE T Wave Mcintire 6 degrees MUSE 10/26/2024 9:31 AM CDT 10/26/2024 9:56 AM CDT Impressions MUSE - 10/26/2024 9:56 AM CDT Sinus rhythm with 1st degree A-V block Otherwise normal ECG When compared with ECG of 29-Jul-2022 09:53, SD interval has increased Reviewed by JESSICA Tsai Narrative Procedure Note Cristian Gaitan M.D. - 10/26/2024 IMPRESSION: Sinus rhythm with 1st degree A-V block Otherwise normal ECG When compared with ECG of 29-Jul-2022 09:53, SD interval has increased Reviewed by JESSICA Tsai us Mary Estes M.D. ECG ORDERABLES Final R esult MUSE NA from Last 3 Months Insurance [facility] MEDICARE [facility] Advance Directives For more information, please contact: [phone] * Full Code (Latest Code Status on File) Date Activated Date Inactivated Comments 03/12/2023 12:26 PM 03/13/2023 6:42 PM Question Answer Comments Full Code: Discussed * Full Code Date Activated Date Inactivated Comments 10/30/2022 4:06 PM 11/02/2022 6:06 PM Question Answer Comments Full Code: Discussed * Full Code Date Activated Date Inactivated Comments 07/25/2022 2:25 PM 08/01/2022 5:58 PM Question Answer Comments Full Code: Discussed Care Teams Pulp Drier Relationship Specialty Start Date End Date Elsewhere, Pcp PCP - General Internal Medicine 07/15/22
--- OUTSIDE RECORDS SUMMARY | 2025-01-26 18:47 | XMS_ITS | Encounter Summary ---
Author Organization [facility] Address [address] [place] [address] Care Team Providers Care Service Now Developer Name Role Phone Elsewhere, Pcp Primary Care Provider Unavailabl e Reason for Visit * Reason Onset Date Comments Abdominal Pain 12/26/2024 Encounter Details Date Type Department Care Team (Late st Contact Info) Description 12/26/2024 Nurse Triage Department of Family Medicine, [facility], in [place], [place] [address] [place] [address] Viktoria Mcdonald RDulceNDulce [address] [place] [address] Abdominal Pain Social History Tobacco Use Types Packs/Day Years Used Date Smoking Tobacco: Never Smokeless Tobacco: Never Alcohol Use Standard Drinks/Week Comments Not Currently 0 (1 standard drink = 0.6 oz pur e alcohol) quit 1993 [facility] Utilities Answer Date Recorded In the past 12 months has [employer], gas, oil, or water [employer] threatened to shut off services in your [...] your living situation today? 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 - 12/26/2024 5:03 PM CDT Chief Complaint / Reason for Call Patient is a 69 y.o. male calling regarding Abdominal Pain. Assessment Concern: Patient had kidney stone two months ago with UA culture completed on 12-23. No blood in urine. Pain present (burning) with voiding. Pain is currently not really hurting but in develops when laying down. Improved with activity. Worsened after napping. No recent injury or lifting. Present for: Started this morning at 5 am. No fevers or chills, no nausea or vomiting present. Home cares tried: Rest and activity. Calling to request: Recommendations. The recommended disposition is Home Care. If pain returns, patient encouraged to follow up with urology clinic on Friday morning or proceed to ER if consistent. Care Advice Patient/Caregiver understands and will follow care advice?: Yes, able to teach back Abdominal Pain - [id number] Nurse Viktoria Wilson Dec 26, 2024 05:18 PM Care Advice HOME CARE: * You should be able to treat this at home. CALL BACK IF: * Severe pain lasts over 1 hour * Constant pain lasts over 2 hours * Intermittent pain (comes and goes, cramps) lasts over 48 hours * You become worse Encouraged caller to call back with any new, worsening, or persistent symptoms. Reason for Disposition [1] MILD-MODERATE pain AND [2] comes and goes (cramps) Protocols used: Abdominal Pain - [facility] documented in this encounter Plan of Treatment Scheduled Procedures Name Priority Associated Diagnoses Date/Ti mt URETEROSCOPY STONE EXTRACTION Stone Ureteral documented as of this encounter Visit Diagnoses Not on filedocumented in this encounter Care Teams Service Now Developer Relationship Specialty Start Date End Date Elsewhere, Pcp PCP - General Internal Medicine 07/15/22 documented as of this encounter
--- OUTSIDE RECORDS SUMMARY | 2025-01-26 18:47 | XMS_ITS | Encounter Summary ---
Author Organization [facility] Address [address] [place] [address] Care Team Providers Care Lath Hand Name Role Phone Elsewhere, Pcp Primary Care Provider Unavailabl e Reason for Visit * Reason Comments Med Refill Encounter Details Date Type Department Care Team (Late st Contact Info) Description 11/25/2024 Refill Department of Radiology in [place], [place] [address] [place] [phone] Jason Quiros M.D. Med Refill Social History Tobacco Use Types Packs/Day Years Used Date Smoking Tobacco: Never Smokeless Tobacco: Never Alcohol Use Standard Drinks/Week Comments Not Currently 0 (1 standard drink = 0.6 oz pur e alcohol) quit 1993 [facility] Utilities Answer Date Recorded In the past [address] [facility] [employer], gas, oil, or water [place] threatened to shut off services in your [...] your living situation today? 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 - 11/25/2024 6:12 PM CDT needs documented in this encounter Plan of Treatment Scheduled Procedures Name Priority Associated Diagnoses Date/Ti me URETEROSCOPY STONE EXTRACTION Stone Ureteral documented as of this encounter Visit Diagnoses Not on filedocumented in this encounter Care Teams Lath Hand Relationship Specialty Start Date End Date Elsewhere, Pcp PCP - General Internal Medicine 07/15/22 documented as of this encounter
--- OUTSIDE RECORDS SUMMARY | 2025-01-26 18:47 | XMS_ITS | Encounter Summary ---
Author Organization [facility] Address [address] [place] [address] Care Team Providers Care Chain Carrier Name Role Phone Elsewhere, Pcp Primary Care Provider Unavailabl e Encounter Details Date Type Department Care Team (Late st Contact Info) Description 12/21/2024 Orders Only Department of Urology in [place], [place] [address] [place] [phone] Mary Estes M.D. [address] [place] [phone] Pyuria (Primary Dx) Social History Tobacco Use Types Packs/Day Years Used Date Smoking Tobacco: Never Smokeless Tobacco: Never Alcohol Use Standard Drinks/Week Comments Not Currently 0 (1 standard drink = 0.6 oz pur e alcohol) quit 1993 [facility] Utilities Answer Date Recorded In the past 12 months has [employer], gas, oil, or water [place] threatened to shut off services in your [...] your living situation today? 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 LAB URINE ORDERABLES Fi nal Result [facility] [address] [place] [address], [facility] NPRG [place] [address] [place] [address] * Bacterial Culture, Aerobic + Susceptibility, Urine (12/23/2024 2:38 PM CDT) Urine Culture Urogenital microbiota, susceptibilities not performed per laboratory criteria. 12/24/2024 1:19 PM CDT MKTO Urine (Urine, Midstream) 12/23/2024 2:38 PM CDT 12/23/2024 4:37 PM CDT Comment:Specimen Source Site : Urine us Mary Estes M.D. LAB MICROBIOLOGY - GENE RAL ORDERABLES Final Result [facility] [address] [place] [address], [facility] MKTO [facility] in [place] [address] [place] [address] documented in this encounter Visit Diagnoses Diagnosis Pyuria- Primary documented in this encounter Care Teams Chain Carrier Relationship Specialty Start Date End Date Elsewhere, Pcp PCP - General Internal Medicine 07/15/22 documented as of this encounter
--- OUTSIDE RECORDS SUMMARY | 2025-01-26 18:48 | XMS_ITS | Clinical Summary ---
Author Organization [facility] Address [address] [place] [address] Care Team Providers Care Informatica Architect Name Role Phone Jason Quiros MD Primary Care Provider [phone] Allergies Active Allergy Reactions Criticality Noted Date Comments Penicillins Hives 03/13/2018 Medications atenolol (TENORMIN) 25 MG tablet 12/12/2017 Active clonazePAM (KLONOPIN) 1 MG tablet Take 1 mg by mouth 05/07/2017 Active diazepam (VALIUM) 5 MG tablet Take 5 mg by mouth Active gemfibrozil (LOPID) 600 MG tablet 11/05/2017 Active hydrOXYzine (VISTARIL) 25 MG capsule TAKE ONE (1) CAPSULE BY MOUTH AT BEDTIME 03/29/2016 Active Active Problems No known active problems Social History Tobacco Use Types Packs/Day Years Used Date Smoking Tobacco: Never Smokeless Tobacco: Never Tobacco Cessation:Counseling Given: Yes Adolescent Education Answer Date Record ed Getting School Help Needed Not on file 12/01 Sex and Gender Information Value Date Recorded Sex Assigned at Not on file 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 Gender Identity Not on file Sexual Orientation Not on file Last Filed Vital Signs Vital Sign Reading Time Taken Comments Blood Pressure 122/78 06/12/2018 10:52 AM CDT Pulse - - Temperature - - Respiratory Rate - - Oxygen Saturation - - Inhaled Oxygen Concentration - - Weight 111.1 kg (245 lb) 06/12/2018 10:52 AM CDT Height 177.8 cm (5' 10) 06/12/2018 10:52 AM CDT Body Mass Index 35.15 06/12/2018 10:52 AM CDT Plan of Treatment Not on file Care Teams Informatica Architect Relationship Specialty Start Date End Date Jason Quiros MD [facility] [address] [place] [address] PCP - General Family Practice 03/13/18
--- OUTSIDE RECORDS SUMMARY | 2025-01-26 18:48 | XMS_ITS | Clinical Summary ---
Author [facility] Address [address] [place] [address] Care Team Providers Care Steeler Name Role Phone Unavailable Primary Care Provider Unavailabl e Source Comments You are receiving this document as you are listed as the primary care provider,follow-up provider, or the patient has been referred to you for consultation.This is in compliance with the Medicare andMedicaid EHR Incentive Program,which states Providers who transition their patient to another setting of careor provider of care or refers their patient to another provider of care shouldprovide summary care record for each transition of care or referral. [facility] Allerg[facility] Active Allergy Reactions Criticality Noted Date Comments Fish Protein-Containing Drug Products Respiratory Distress High 03/22/2021 Atorvastatin Muscle Aches/Weakness 03/22/2021 Morphine Nausea And Vomiting 08/29/2019 Penicillins Hives High 03/22/2021 Medications ramipril (ALTACE) 2.5 MG capsule Take 2.5 mg by mouth daily. Active atenolol (TENORMIN) 25 MG tablet Take 25 mg by mouth daily. Active ALPRAZolam XR (XANAX XR) 3 MG 24 hour release tablet Take 3 mg by mouth daily. Pt takes 6 mg daily Active potassium chloride (KLOR-CON M) 20 MEQ ER tablet Take 20 mEq by mouth daily. Active Magnesium Chloride (MAGNESIUM DR OR) Active pantoprazole DR (PROTONIX) 40 MG tablet Take 40 mg by mouth two times a day. Active tramadol-acetam inophen (ULTRACET) 37.5-325 MG tablet Take 1 Tablet by mouth every 6 hours as needed for Pain. Active lactulose (CONSTULOSE) 10 GM/15ML solution Take 20 g by mouth three times a day. Active ALBUterol sulfate HFA 108 (90 Base) MCG/ACT inhaler Inhale 1-2 Puffs every 4 hours as needed for Wheezing. Active Meloxicam (MOBIC) 15 MG tablet Take 15 mg by mouth daily. Active montelukast (SINGULAIR) 10 MG tablet Take 10 mg by mouth every evening. Active Temazepam (RESTORIL) 30 MG capsule Take 30 mg by mouth at bedtime as needed for Sleep. Active simvastatin (ZOCOR) 20 MG tablet Take 20 mg by mouth daily at bedtime. Active tamsulosin (FLOMAX) 0.4 MG CAPS capsule Take 0.4 mg by mouth daily. Active hydrOXYzine HCl (ATARAX) 25 MG tablet Take 25 mg by mouth daily at bedtime. Active fluticasone propionate (FLONASE) 50 MCG/ACT nasal solution Place 2 Sprays into both nostrils daily. Active gemfibrozil (LOPID) 600 MG tablet Take 600 mg by mouth daily. Active diazePAM (VALIUM) 5 MG tablet Take 5 mg by mouth every 6 hours as needed for Anxiety. Active Active Problems Problem Noted Date Diagnosed Date Morbid obesity 08/30/2019 Ileitis, regional 08/29/2019 Restless leg syndrome 01/24/2016 Mood disorder 02/02/2015 Obstructive sleep apnea syndrome 04/05/2014 Insomnia 03/29/2014 Benign paroxysmal positional vertigo 06/29/2013 SBO (small bowel obstruction) 02/28/2012 Alcohol dependence in remission 12/31/2011 Benzodiazepine dependence in remission 2 Dysthymia 12/05/2011 Anxiety disorder due to general medical conditio n 10/18/2011 Galvin's esophagus 04/23/2011 Dysphagia 04/23/2011 Immunizations Immunization Administration Dates Next Due Flu Vac (3+ yrs) 03/19/2017, 5,02/09/2014,2011,12/01/2010 Fluzone Qiv Multidose Vial 0 .25 (6-35 Mos) 01/28/2020,12/03/2017,01/05/2016 Influenza IIV4 (Quadrivalent ) Fluzone, 65+ Yrs 12/21/2020 Influenza aIIV3 65+ Years (Fluad) 12/01/2010 Moderna Monovalent 12+ 12/24/2020,05/12/2020,01/2021 PPSV23 (Pneumovax) 02/28/2012,03/03/2008 Tdap 05/15/2008 Social History Tobacco Use Types Packs/Day Years Used Date Smoking Tobacco: Never Smokeless Tobacco: Never Sex and Gender Information Value Date Recorded Sex Assigned at Not on file Legal Sex Male 11:18 AM CDT Gender Identity Not on file Sexual Orientation Not on file Plan of Treatment Health Maintenance Due Date Last Done Comments Colon Cancer Screening Plan Due 1955 PSA Screening Discussion 1955 Adult Preventive Visit 1974 Cholesterol 05/20/1991 Zoster/Shingles Vaccine (1 of 2) 2006 Pneumococcal Vaccine 50+ Yrs (2 of 2 - PCV) 02/27/2013 02/28/2012, 03/03/2008 DTaP/Tdap/Td Vaccine (2 - Tdap) 05/15/2018 05/15/2008 COVID-19 Vaccine (4 - season) 2024 12/24/2020, 05/12/2020, 04/14/2020 Influenza Vaccine (#1) 2024 , 01/28/2020, 12/03/2017, Additional history exists RSV Vaccine (1 - 1-dose 75+ series) 05/20/2031 Hep C Screening (Preventive Services) Completed 03/22/2021 HepA Vaccine Aged Out No longer eligi ble based on patient's age to complete this topic HepB Vaccine Aged Out No longer eligi ble based on patient's age to complete this topic Hib Vaccine Aged Out No longer eligi ble based on patient's age to complete this topic IPV (Polio) Vaccine Aged Out No longe r eligible based on patient's age to complete this topic MCV4 Vaccine Aged Out No longer eligi ble based on patient's age to complete this topic Meningococcal B Vaccine Aged Out No l onger eligible based on patient's age to complete this topic Procedures Procedure Name Priority Date/Time Associated Diagnosis Comments HEPATITIS C ANTIBODY, WITH REFLEX (ANTI-HCV) Routine 03/22/2021 11:50 AM INSPECTOR HAIRSPRING TRUING Arthralgia, unspecified joint from Last 3 Months or Most Recently Relevant to Health Maintenance Results * HCAB - Hepatitis C Virus Dana with Reflex In-House (03/22/2021 11:50 AM INSPECTOR HAIRS[employer]ING TRUING) Hepatitis C Antibody Negative (Non Reactive) Negative (Non Reactive) 03/22/2021 4:26 PM INSPECTOR HAIRS[employer]ING [employer]UING [facility] Comment:Antibodies to HCV no t detected. Does not exclude the possiblity of exposure to HCV. Blood Venipuncture / Unknown 03/22/2021 11:50 AM INSPECTOR HAIRSPRING TRUING 03/22/2021 11:50 AM INSPECTOR HAIRSPRING TRUING us Clifford Barahona MD LAB_1 Final Result [facility] [address] [place], [place] [id number] [place] [address] from Last 3 Months or Most Recently Relevant to Health Maintenance Insurance [employer]
[2025-01-26] MEDS: MORPHINE 4 MG/ML INJ 8 MG IM (19:58)
== END 2025-01-26 20:00 | disposition home or self-care (01) ==
PROVIDERS: Emergency Provider Family Medicine; PCP Family Medicine
DX: S49.91XA Unspecified injury of right shoulder and upper arm, initial encounter (principal); M54.50 Low back pain, unspecified; W00.0XXA Fall on same level due to ice and snow, initial encounter; Y93.H1 Activity, digging, shoveling and raking; Y92.008 Other place in unspecified non-institutional (private) residence as the place of occurrence of the external cause; Z79.899 Other long term (current) drug therapy; Z96.0 Presence of urogenital implants
CPT/HCPCS: 70450; 71250; 72125; 73030; 74176; 96372; 99284; 99285; A9270; J2270